=== PATIENT | female | born 1955 | race American Indian/Alaskan Native ===

== ENCOUNTER 2017-08-07 11:47 | Inpatient (IN) | payer OTHER ==
[2017-08-07] MEDS ORDERED: Sodium Chloride 0.9% 1,000 ML IV STA ×2 (12:33→16:23)
--- NOTE | 2017-08-07 13:20 | ED PDOC ---
Arrival/HPI - General Chief Complaint: Flu-like Symptoms Time Seen by Provider: 08/07/17 12:17 Historian: Patient - History of Present Illness Narrative History of Present Illness (Text): 08/07/17 13:16 A 62 year old female, whose past medical history includes diabetes, hypertension , hyperlipidemia, presents to the emergency department complaining of 4 day duration subjective fever, vomiting, sore throat, body aches, chills, nasal congestion and lightheadedness. The patient notes that she took Motrin for her symptoms without any relief. The patient states that she fell twice due to her lightheadedness. The patient denies LOC, headache, chest pain, shortness of breath, dyspnea on exertion, abdominal pain, nausea, diarrhea, back pain, neck pain, urinary/bowel changes, or any other complaint. PMD: Dr. Rita Nation Time/Duration: Other (4 days) Symptom Onset: Sudden Symptom Course: Unchanged Activities at Onset: Rest, Light Context: Home Past Medical History - Provider Review Nursing Documentation Reviewed: Yes - Infectious Disease Hx of Infectious Diseases: None - Tetanus Immunization Tetanus Immunization: Up to Date - Cardiac Hx Cardiac Arrhythmia: Yes (irregular heart beat) Hx Heart Murmur: Yes Hx Hypertension: Yes - Renal Hx Kidney Stones: Yes - Endocrine/Metabolic Hx Diabetes Mellitus Type 2: Yes - Psychiatric Hx Depression: No Hx Emotional Abuse: No Hx Physical Abuse: No Hx Substance Use: No - Suicidal Assessment Feels Threatened In Home Enviroment: No Family/Social History - Physician Review Nursing Documentation Reviewed: Yes Family/Social History: No Known Family HX Smoking Status: Never Smoked Hx Alcohol Use: No Hx Substance Use: No Hx Substance Use Treatment: No Allergies/Home Meds Allergies/Adverse Reactions: Allergies No Known Allergies Allergy (Verified 08/07/17 12:15) Home Medications: Home Meds Medication Instructions Recorded Confirmed Unobtainable 08/07/17 08/07/17 Review of Systems - Physician Review All systems were reviewed & negative as marked: Yes - Review of Systems Constitutional: Fevers ENT: Sore Throat Respiratory: absent: SOB, Cough Cardiovascular: absent: Chest Pain, MYRICK Gastrointestinal: Vomiting. absent: Abdominal Pain, Stool Changes, Constipation , Diarrhea, Nausea Genitourinary Female: absent: Urine Output Changes Musculoskeletal: Other (Body aches.). absent: Back Pain, Neck Pain Neurological: absent: Headache, Dizziness (Lightheaded) Physical Exam Vital Signs Reviewed: Yes Vital Signs Temp Pulse Resp BP Pulse Ox 08/07/17 14:45 85 18 134/94 H 97 08/07/17 12:11 98.5 F 116 H 18 105/70 97 Temperature: Afebrile Blood Pressure: Normal Pulse: Regular Respiratory Rate: Normal Appearance: Positive for: Non-Toxic, Comfortable, Ill-Appearing (Patient appears weak. ) Pain Distress: None Mental Status: Positive for: Alert and Oriented X 3 - Systems Exam Head: Present: Atraumatic, Normocephalic Pupils: Present: PERRL Extroacular Muscles: Present: EOMI Conjunctiva: Present: Normal Mouth: Present: Moist Mucous Membranes Nose (Internal): Present: Other (Nasal congestion.) Neck: Present: Normal Range of Motion Respiratory/Chest: Present: Clear to Auscultation, Good Air Exchange. No: Respiratory Distress, Accessory Muscle Use Cardiovascular: Present: Regular Rate and Rhythm, Normal S1, S2. No: Murmurs Abdomen: Present: Normal Bowel Sounds. No: Tenderness, Distention, Peritoneal Signs Back: Present: Normal Inspection Upper Extremity: Present: Normal Inspection. No: Cyanosis, Edema Lower Extremity: Present: Normal Inspection. No: Edema Neurological: Present: GCS=15, CN II-XII Intact, Speech Normal Skin: Present: Warm, Dry, Normal Color. No: Rashes Psychiatric: Present: Alert, Oriented x 3, Normal Insight, Normal Concentration Medical Decision Making ED Course and Treatment: 08/07/17 13:22 Impression: A 62 year old female presents to the emergency department complaining of 4 day duration fever, chills, sore throat, lightheadedness, body aches and vomiting. Plan: -- EKG -- Chest X-ray -- Labs -- IV Fluids -- Reassess and disposition Progress Notes: EKG: Ordered, reviewed, and independently interpreted the EKG. Rate : 96 BPM Rhythm : NSR Interpretation : RBBB. ST elevation in lead V2 1mm; ST depressions in the inferior lateral leads. 08/07/2017 15:15 Chest X-ray IMPRESSION: No active disease. Dictator: Oli Jones MD 08/07/17 16:57 Patient's EKG was concerning for cardiac disease. Cardiac enzymes were added and came out positive troponin at 3.99. EKG was sent to Dr. Anthony who is covering Cardiac Cath who recommends ASA, Plavix and Heparin bolus and drip. He will not take for an urgent cath at this time. Patient states that although she does not have chest pain now she does recall chest pain 4 days ago that resolved that day. Case discussed with Dr. Saldaña, Cardiology, who agrees with plan as per Dr. Anthony and he will consult. Case was discussed with Dr. Leblanc, hospitalist, who admits for Dr. Nation. She agrees to Telemetry services and she will evaluate patient. Repeat EK:56 EKG: Ordered, reviewed, and independently interpreted the EKG. Rate : 101 BPM Rhythm : Sinus Tachy Interpretation : RBBB. ST elevation in lead V2 1mm; ST depressions in the inferior lateral leads. No change from earlier EKG. - Critical Care Critical Care Minutes: 60 minutes - Lab Interpretations Lab Results: 08/07/17 13:48 08/07/17 13:48 Lab Results 08/07/17 13:48: Lactate Dehydrogenase 708 H, Total Creatine Kinase 201, Troponin I 3.99 H* 08/07/17 13:48: Sodium 136, Potassium 4.4, Chloride 93 L, Carbon Dioxide 27, Anion Gap 20, BUN 42 H, Creatinine 1.5 H, Est GFR ( Amer) 43, Est GFR ( Non-Af Amer) 35, Random Glucose 386 H*, Calcium 10.6 H, Magnesium 1.9 08/07/17 13:48: WBC 18.4 H, RBC 5.93, Hgb 16.9 H, Hct 49.2 H, MCV 83.0, MCH 28.5 , MCHC 34.3, RDW 12.7, Plt Count 407, MPV 9.9, Gran % 78.0 H, Lymph % (Auto) 15.8 L, [place] % (Auto) 6.1 H, Eos % (Auto) 0.0 L, Baso % (Auto) 0.1, Gran # 14.36 H, Lymph # (Auto) 2.9, [place] # (Auto) 1.1 H, Eos # (Auto) 0.0, Baso # (Auto ) 0.02 08/07/17 12:30: Influenza Typ A,B (EIA) Negative for flu a/b I have reviewed the lab results: Yes - RAD Interpretation Radiology Orders: 08/07/17 12:34 CHEST PORTABLE [RAD] Stat - EKG Interpretation Interpreted by ED Physician: Yes Type: 12 lead EKG - Medication Orders Current Medication Orders: Acetaminophen (Tylenol 325mg Tab) 650 mg PO Q6H PRN PRN Reason: Fever >100.4 F Aspirin (Aspirin Chewable) 81 mg PO DAILY [facility] Atorvastatin Calcium (Lipitor) 40 mg PO DIN [facility] Benzocaine/Menthol (Cepacol Sore Throat) 1 hardeep MT Q2H PRN PRN Reason: Sore Throat Clopidogrel Bisulfate (Plavix) 75 mg PO DAILY [facility] Sodium Chloride (Sodium Chloride 0.9%) 1,000 mls @ 999 mls/hr IV .Q1H1M STA Stop: 08/07/17 17:23 Sodium Chloride (Sodium Chloride 0.9%) 1,000 mls @ 100 mls/hr IV .Q10H [facility] Vancomycin HCl (Vancomycin 1gm) 1 gm in 250 mls @ 167 mls/hr IVPB DAILY [facility] PRN Reason: Protocol Piperacillin Sod/Tazobactam Sod (Zosyn 3.375 In Ns 100ml) 100 mls @ 200 mls/hr IVPB Q6 [facility] PRN Reason: Protocol Stop: 08/08/17 00:29 Ibuprofen (Motrin Tab) 600 mg PO Q6H PRN PRN Reason: Fever >100.4 F Insulin Human Regular (Humulin R Med) 0 units SC ACHS [facility] PRN Reason: Protocol Metoprolol Tartrate (Lopressor) 25 mg PO 0800,1800 [facility] Ondansetron HCl (Zofran Inj) 4 mg IVP Q6H PRN PRN Reason: Nausea/Vomiting Oseltamivir Phosphate (Tamiflu Cap) 75 mg PO Q12 [facility] PRN Reason: Protocol Discontinued Medications Aspirin (Aspirin) 325 mg PO STAT STA Stop: 08/07/17 15:15 Atorvastatin Calcium (Lipitor) 40 mg PO STAT STA Stop: 08/07/17 16:04 Clopidogrel Bisulfate (Plavix) 75 mg PO STAT STA Stop: 08/07/17 16:04 Heparin Sodium (Porcine) (Heparin) 5,000 units IV ONCE ONE PRN Reason: Protocol Stop: 08/07/17 16:04 Sodium Chloride (Sodium Chloride 0.9%) 1,000 mls @ 999 mls/hr IV .Q1H1M STA Stop: 08/07/17 13:33 Last Admin: 08/07/17 13:38 Dose: 999 mls/hr eMAR Start Stop Document 08/07/17 13:38 GMD (Rec: 08/07/17 13:38 GMD [id number]) Intravenous Solution Start Date 08/07/17 Start Time 13:38 End Date 08/07/17 End time 14:39 Total Infusion Time 61 Vancomycin HCl (Vancomycin 1gm) 1 gm in 250 mls @ 167 mls/hr IVPB STAT STA PRN Reason: Protocol Stop: 08/07/17 16:34 Piperacillin Sod/Tazobactam Sod (Zosyn 4.5 Gm In Ns 100ml) 4.5 gm in 100 mls @ 200 mls/hr IVPB STAT STA PRN Reason: Protocol Stop: 08/07/17 15:34 Ketorolac Tromethamine (Toradol) 30 mg IVP STAT STA Stop: 08/07/17 14:15 Last Admin: 08/07/17 14:20 Dose: 30 mg MAR Pain Assessment Document 08/07/17 14:20 GMD (Rec: 08/07/17 14:20 GMD [id number]) Pain Reassessment Is this a pain reassessment? No Sleep Is patient sleeping during reassessment? No Presence of Pain Presence of Pain Yes IVP Administration Document 08/07/17 14:20 GMD (Rec: 08/07/17 14:20 GMD [id number]) Charges for Administration # of IVP Administrations 1 Metoprolol Tartrate (Lopressor) 25 mg PO STAT STA Stop: 08/07/17 16:04 Oseltamivir Phosphate (Tamiflu Cap) 75 mg PO STAT STA PRN Reason: Protocol Stop: 08/07/17 15:07 - Scribe Statement The provider has reviewed the documentation as recorded by the Juan Waterman Provider Scribe Attestation: All medical record entries made by the Scribe were at my direction and personally dictated by me. I have reviewed the chart and agree that the record accurately reflects my personal performance of the history, physical exam, medical decision making, and the department course for this patient. I have also personally directed, reviewed, and agree with the discharge instructions and disposition. Disposition/Present on Arrival - Present on Arrival Any Indicators Present on Arrival: No History of DVT/PE: No History of Uncontrolled Diabetes: No Urinary Catheter: No History of Decub. Ulcer: No History Surgical Site Infection Following: None - Disposition Have Diagnosis and Disposition been Completed?: Yes Diagnosis: NSTEMI (non-ST elevated myocardial infarction), Viral syndrome Disposition: HOSPITALIZED Disposition Time: 15:45 Patient Plan: Admission Condition: FAIR
[2017-08-07 13:51] LABS: BASO # 0.02 K/mm3 (0.0-2.0); BASO % 0.1 % (0.0-3.0); GRAN # 14.36 (1.4-6.5); HEMOGLOBIN 16.9 g/dL (12.0-16.0); LYMPH # 2.9 (1.2-3.4); LYMPH % 15.8 % (22.0-35.0); MEAN CORPUSCULAR HEMOGLOBIN 28.5 pg (25.0-35.0); MEAN CORPUSCULAR HGB CONC 34.3 g/dl (31.0-37.0); MEAN PLATELET VOLUME 9.9 fl (7.0-11.0); MONO # 1.1 (0.1-0.6); MONO % 6.1 % (1.0-6.0); RBC 5.93 10^6/uL (3.5-6.1); RED CELL DISTRIBUTION WIDTH 12.7 % (11.5-14.5); WHITE BLOOD COUNT 18.4 10^3/ul (4.5-11.0)
[2017-08-07 14:27] LABS: CALCIUM 10.6 mg/dL (8.4-10.5); MAGNESIUM 1.9 mg/dL (1.7-2.2)
[2017-08-07] MEDS ORDERED: Piperacill/Tazo 4.5gm in NS 4.5 GM/100 ML BAG IVPB STA (15:05)
[2017-08-07] MEDS ORDERED: Vancomycin 1gm in NS 250ml 1 GM/250 ML BAG IVPB STA (15:05)
[2017-08-07 15:11] LABS: TROPONIN I 3.99 ng/mL
--- NOTE | 2017-08-07 15:16 | RAD ---
HISTORY: Cough. Pneumonia suspected COMPARISON: No prior. FINDINGS: LUNGS: No active pulmonary disease. PLEURA: No significant pleural effusion identified, no pneumothorax apparent. CARDIOVASCULAR: No radiographic findings to suggest acute or significant cardiovascular disease. OSSEOUS STRUCTURES: No significant abnormalities. VISUALIZED UPPER ABDOMEN: Normal. OTHER FINDINGS: None. IMPRESSION: No active disease. Concordant results with the preliminary interpretation rendered by the emergency department physician procedure.
[2017-08-07] MEDS ORDERED: Benzocaine/Menthol (Cepacol) Lozenge MT PRN (16:23)
[2017-08-07] MEDS ORDERED: Sodium Chloride 0.9% 1,000 ML IV SCH (16:30)
--- NOTE | 2017-08-07 16:55 | CP.PCM.HP ---
History of Present Illness - History of Present Illness History of Present Illness: Lara Griffin, PGY1, H&P for Dr Leblanc: CC: body aches, subjective fevers, congestion, chest pressure for past 4 days 62 year old female with hx of HTN, HLD, DM, presents to ED for body aches, congestion, subjective fevers for past 4 days. Pt states that she felt these symptoms on night. Motrin and lozenges helped her a little. She also felt midsternal chest pressure at the time, feels like an "elephant sitting on her chest", rates it 7/10, intermittent, lasting 10-15 minutes at a time, started while she was in bed, unrelated to exertional activities (unknown as pt has been in bed for past few days), radiating to right jaw, has associated sob, diaphoresis, mild abdominal pain. Reports bilious, nonbloody emesis for past few days, decreased appetite and PO intake. Due to poor intake, pt also reports that she felt dizzy yesterday and had 2 falls at home (landed on her hands, no injury to hip/pelvis/head), prompting pt to come to ED. Pt vaguely remembers that she had a stress test, possibly [address] Han, which was normal , reports no previous cardiac cath. Reports no prior chest pain, prior to current episode. In ED, pt afebrile, tachycardic, other vitals stable. leukocytosis 18.8, hemocontrated Hgb 16.9, hct 49.2, Don BUN/Cr 42/1.5 (unknown baseline). flu negative. Given ASA 325, plavix 75, 1L NS bolus, Vanco and zosyn x1, heparin loading dose, started heparin drip. Tamiflu given. Dr Saldaña on board. Currently, pt denies fever, chills, nausea, vomiting, headache, cp, sob, cough, abdominal pain, wheezing, urinary symptoms, leg swelling. Reports body aches and sore throat are improving. 12 point ROS obtained and neg, except as noted per hPI. PMH: HTN, HLD, DM PSH: kidney stone removal All: NKA FH: polycystic kidney disease in mother, brother HTN in family SH: lives with in house. Works at [employer]. Denies etoh/ tobacco/recreational drug use. PMD: Nation Cardio: [facility] Home Meds: ASA 81, lisinopril 2.5 mg daily, Metformin 500 mg BID, HCTZ 12.5 mg daily, Atorvastatin 20 mg daily Present on Admission - Present on Admission Any Indicators Present on Admission: No History of DVT/PE: No History of Uncontrolled Diabetes: No Urinary Catheter: No Decubitus Ulcer Present: No Review of Systems - Review of Systems All systems: reviewed and no additional remarkable complaints except Review of Systems: as per HPI Past Patient History - Infectious Disease Hx of Infectious Diseases: None - Tetanus Immunizations Tetanus Immunization: Up to Date - Past Social History Smoking Status: Never Smoked - CARDIAC Hx Cardia Arrhythmia: Yes (irregular heart beat) Hx Heart Murmur: Yes Hx Hypertension: Yes - RENAL Hx Kidney Stones: Yes - ENDOCRINE/METABOLIC Hx Diabetes Mellitus Type 2: Yes - PSYCHIATRIC Hx Depression: No Hx Emotional Abuse: No Hx Physical Abuse: No Hx Substance Use: No - SURGICAL HISTORY Hx Surgeries: No Meds Allergies/Adverse Reactions: Allergies Allergy/AdvReac Type Severity Reaction Status Date / Time No Known Allergies Allergy Verified 08/07/17 12:15 Physical Exam - Constitutional Appears: Non-toxic - Head Exam Head Exam: ATRAUMATIC, NORMOCEPHALIC - Eye Exam Eye Exam: EOMI, PERRL. absent: Conjunctival injection, Nystagmus, Scleral icterus Pupil Exam: NORMAL ACCOMODATION, PERRL. absent: Fixed, Irregular - ENT Exam ENT Exam: Mucous Membranes Dry - Neck Exam Neck exam: Positive for: Full Rom - Respiratory Exam Respiratory Exam: Clear to Auscultation Bilateral, NORMAL BREATHING PATTERN. absent: Accessory Muscle Use, Chest Wall Tenderness, Rales, Rhonchi, Wheezes - Cardiovascular Exam Cardiovascular Exam: RRR, +S1, +S2. absent: Systolic Murmur - GI/Abdominal Exam GI & Abdominal Exam: Normal Bowel Sounds, Soft. absent: Distended, Firm, Guarding, Rebound, Rigid, Tenderness - Extremities Exam Extremities exam: Positive for: normal inspection. Negative for: calf tenderness, pedal edema - Back Exam Back exam: NORMAL INSPECTION. absent: CVA tenderness (L), CVA tenderness (R) - Neurological Exam Neurological exam: Alert, Oriented x3 - Psychiatric Exam Psychiatric exam: Normal Affect, Normal Mood - Skin Skin Exam: Dry, Normal Color, Warm Results - Vital Signs Recent Vital Signs: Last Vital Signs Temp 98.5 F 08/07/17 12:11 Pulse 85 08/07/17 14:45 Resp 18 08/07/17 14:45 BP 134/94 H 08/07/17 14:45 Pulse Ox 97 08/07/17 14:45 - Labs Result Diagrams: 08/07/17 13:48 08/07/17 16:45 Assessment & Plan - Assessment and Plan (Free Text) Assessment: 62 year old female with hx of HTN, HLD, DM, presents for body aches, subjective fevers, congestion, chest pressure, found to have elevated troponin: Chest pressure, r/o ACS: - Initial trop 3.99. EKG shows HR [address] depressions in inferior lateral leads. - F/u serial trops. EKG in AM. - Received ASA 325, plavix 75 mg, lopressor 25 mg, lipitor 40 mg in ED, heparin 5000 units IV in ED. - Started on ASA 81, plavix 75, lopressor 25 bid, [id number]. - Heparin drip - Tele - Dr Saldaña on board. Appreciate recs. Body aches, congestion, subjective fevers: 2/2 viral like illness, flu vs PNA vs UTI (less likely) vs gastroenteritis - Influenza rapid swab neg. Sent for serum testing - Given Tamiflu 1 dose in ED. Started tamiflu bid x 5 days. - Procal, blood culture, UA, urine culture - zofran prn, tylenol and motrin prn - Vanco and zosyn x 1 dose in ED. Started it empirically. - Leukocytosis 18.4, no bandemia. - Afebrile in ED - ID consulted. F/u recs. - Cont to monitor. Acute on chronic kidney disease: likely prerenal (dehydration) - BUN/Cr 42/1.5; ratio>20 - GFR 35: stage 3 CKD - Sent Uosm, Urine lytes - Given 1L NS bolus in ED. - IL NS bolus. NS @ 100/hr Hx of HTN: - Hold home anti-HTN [id number] in setting of DON - Hold HCTZ in setting of dehydration PPX: Protonix, Heparin drip Discussed with Dr Leblanc. - Date & Time Date: 08/07/17 Time: 16:55
[2017-08-07] MEDS ORDERED: Heparin25000 units/250ml 1/2NS 25,000 UNITS/250 ML BAG IV SCH (17:00)
[2017-08-07 17:10] LABS: HDL CHOLESTEROL 34 mg/dL (29-60)
[2017-08-07 17:12] LABS: INR 1.14 (0.93-1.08)
[2017-08-07 17:20] LABS: LDL CHOLESTEROL 115 mg/dL (0-129)
[2017-08-07 17:29] LABS: ALB/GLOB RATIO 1.2 (1.1-1.8); ALT/SGPT 20 U/L (7-56); AST/SGOT 41 U/L (14-36); BLOOD UREA NITROGEN 39 mg/dL (7-21); CALCIUM 9.8 mg/dL (8.4-10.5); GFR AFRICAN-AMERICAN > 60; GFR NON-AFRICAN AMERICAN 51
[2017-08-07 18:50] VITALS: BMI 25.8
--- NOTE | 2017-08-07 20:31 | CP.PCM.CON ---
History of Present Illness - History of Present Illness History of Present Illness: Infectious Disease Consultation: August 07, 2017 62 yo female with extensive medical history that includes HTN, HLD, and DM presents with with 4 day history of body aches, subjective fevers, congestion, and chest pressure. Found to have elevated troponins. The patient was found to be also tachycardic and with leukocytosis of 18.8. Influenza screen negative. Reports sore throat and body aches as well. Chest X-ray does not show active disease. PMHx: HTN, HLD, DM PSHx: kidney Stone removal Allergies: NKDA Social Hx: No tobacco, EtOH, or illicit drug use Work at [employer] Lives at home with Active Medications Acetaminophen (Tylenol 325mg Tab) 650 mg PO Q6H PRN PRN Reason: Fever >100.4 F Aspirin (Aspirin Chewable) 81 mg PO DAILY [facility] Atorvastatin Calcium (Lipitor) 40 mg PO DIN [facility] Benzocaine/Menthol (Cepacol Sore Throat) 1 hardeep MT Q2H PRN PRN Reason: Sore Throat Clopidogrel Bisulfate (Plavix) 75 mg PO DAILY [facility] Sodium Chloride (Sodium Chloride 0.9%) 1,000 mls @ 100 mls/hr IV .Q10H [facility] Vancomycin HCl (Vancomycin 1gm) 1 gm in 250 mls @ 167 mls/hr IVPB DAILY [facility] PRN Reason: Protocol Piperacillin Sod/Tazobactam Sod (Zosyn 3.375 In Ns 100ml) 100 mls @ 200 mls/hr IVPB Q6 [facility] PRN Reason: Protocol Stop: 08/08/17 00:29 Heparin Sodium/Sodium Chloride (Heparin 86511 Units/250ml 1/2 Normal Saline) 25 ,000 units in 250 mls @ 8.709 mls/hr IV .Q24H NANCY; 12 UNITS/KG/HR PRN Reason: Protocol Last Admin: 08/07/17 18:14 Dose: 12 units/kg/hr, 8.709 mls/hr Ibuprofen (Motrin Tab) 600 mg PO Q6H PRN PRN Reason: Fever >100.4 F Insulin Human Regular (Humulin R Med) 0 units SC ACHS [facility] PRN Reason: Protocol Metoprolol Tartrate (Lopressor) 25 mg PO 0800,1800 [facility] Ondansetron HCl (Zofran Inj) 4 mg IVP Q6H PRN PRN Reason: Nausea/Vomiting Oseltamivir Phosphate (Tamiflu Cap) 75 mg PO Q12 [facility] PRN Reason: Protocol Pantoprazole Sodium (Protonix Inj) 40 mg IVP Q12 [facility] Family Hx: polycystic kidney disease in mother and brother ROS: body aches, subjective fevers, chills, congestion, chest pressure. No abdominal pain, melena, hematuria, hematemesis, hematochezia, depression, anxiety, diarrhea, vision loss, hearing loss, loss of consciousnes. Past Patient History - Infectious Disease Hx of Infectious Diseases: None - Tetanus Immunizations Tetanus Immunization: Up to Date - Past Social History Smoking Status: Never Smoked - CARDIAC Hx Cardia Arrhythmia: Yes (irregular heart beat) Hx Heart Murmur: Yes Hx Hypertension: Yes - RENAL Hx Kidney Stones: Yes - ENDOCRINE/METABOLIC Hx Diabetes Mellitus Type 2: Yes - MUSCULOSKELETAL/RHEUMATOLOGICAL Hx Falls: No - PSYCHIATRIC Hx Depression: No Hx Emotional Abuse: No Hx Physical Abuse: No Hx Substance Use: No - SURGICAL HISTORY Hx Surgeries: No Meds Allergies/Adverse Reactions: Allergies Allergy/AdvReac Type Severity Reaction Status Date / Time No Known Allergies Allergy Verified 08/07/17 12:15 - Medications Medications: Current Medications Acetaminophen (Tylenol 325mg Tab) 650 mg PO Q6H PRN PRN Reason: Fever >100.4 F Aspirin (Aspirin Chewable) 81 mg PO DAILY [facility] Atorvastatin Calcium (Lipitor) 40 mg PO DIN [facility] Benzocaine/Menthol (Cepacol Sore Throat) 1 hardeep MT Q2H PRN PRN Reason: Sore Throat Clopidogrel Bisulfate (Plavix) 75 mg PO DAILY [facility] Sodium Chloride (Sodium Chloride 0.9%) 1,000 mls @ 100 mls/hr IV .Q10H [facility] Vancomycin HCl (Vancomycin 1gm) 1 gm in 250 mls @ 167 mls/hr IVPB DAILY [facility] PRN Reason: Protocol Piperacillin Sod/Tazobactam Sod (Zosyn 3.375 In Ns 100ml) 100 mls @ 200 mls/hr IVPB Q6 [facility] PRN Reason: Protocol Stop: 08/08/17 00:29 Heparin Sodium/Sodium Chloride (Heparin 12532 Units/250ml 1/2 Normal Saline) 25 ,000 units in 250 mls @ 8.709 mls/hr IV .Q24H NANCY; 12 UNITS/KG/HR PRN Reason: Protocol Last Admin: 08/07/17 18:14 Dose: 12 units/kg/hr, 8.709 mls/hr Ibuprofen (Motrin Tab) 600 mg PO Q6H PRN PRN Reason: Fever >100.4 F Insulin Human Regular (Humulin R Med) 0 units SC ACHS [facility] PRN Reason: Protocol Metoprolol Tartrate (Lopressor) 25 mg PO 0800,1800 [facility] Ondansetron HCl (Zofran Inj) 4 mg IVP Q6H PRN PRN Reason: Nausea/Vomiting Oseltamivir Phosphate (Tamiflu Cap) 75 mg PO Q12 [facility] PRN Reason: Protocol Pantoprazole Sodium (Protonix Inj) 40 mg IVP Q12 [facility] Physical Exam - Constitutional Appears: Non-toxic, No Acute Distress - Head Exam Head Exam: ATRAUMATIC, NORMOCEPHALIC - Eye Exam Eye Exam: EOMI, PERRL Pupil Exam: NORMAL ACCOMODATION, PERRL - ENT Exam ENT Exam: Mucous Membranes Moist, Normal External Ear Exam, TM's Normal Bilaterally - Neck Exam Neck exam: Positive for: Full Rom, Normal Inspection - Respiratory Exam Respiratory Exam: Clear to Auscultation Bilateral, NORMAL BREATHING PATTERN. absent: Rales, Rhonchi, Wheezes - Cardiovascular Exam Cardiovascular Exam: REGULAR RHYTHM, RRR, +S1, +S2 - GI/Abdominal Exam GI & Abdominal Exam: Normal Bowel Sounds, Soft. absent: Distended, Tenderness - Extremities Exam Extremities exam: Positive for: full ROM, normal inspection - Neurological Exam Neurological exam: Alert, CN II-XII Intact, Oriented x3 - Psychiatric Exam Psychiatric exam: Normal Affect, Normal Mood - Skin Skin Exam: Intact, Normal Color Results - Vital Signs Recent Vital Signs: Last Vital Signs Temp 98.5 F 08/07/17 12:11 Pulse 85 08/07/17 14:45 Resp 18 08/07/17 18:46 BP 134/94 H 08/07/17 14:45 Pulse Ox 97 08/07/17 14:45 - Labs Result Diagrams: 08/07/17 13:48 08/07/17 16:45 Labs: Laboratory Results - last 24 hr 08/07/17 08/07/17 16:45 16:45 Sodium 138 Potassium 4.0 Chloride 99 Carbon Dioxide 25 Anion Gap 17 BUN 39 H Creatinine 1.1 Est GFR ( Amer) > 60 Est GFR (Non-Af Amer) 51 Random Glucose 300 H Calcium 9.8 Total Bilirubin 1.3 AST 41 H ALT 20 Alkaline Phosphatase 65 Total Creatine Kinase 183 Total Protein 7.5 Albumin 4.0 Globulin 3.5 Albumin/Globulin Ratio 1.2 Triglycerides 224 H Cholesterol 173 LDL Cholesterol Direct 115 HDL Cholesterol 34 Assessment & Plan - Assessment and Plan (Free Text) Assessment: 62 yo female with presentation for body aches, subjective fevers, congestion, and chest pressure found to have elevated troponin and increased leukocytosis. No bandemia noted. Negative Chest X-ray. [place] cultures sent. Influenza negative. Trend WBC. On Vancomycin and Zosyn in ER. Supportive care. Noted procalcitonin sent but patient not showing signs of sepsis. No strong evidence of pneumonia. Spoke with Dr. Leblanc. Thank you for allowing me to participate in the care of the patient, we will follow with you.
[2017-08-07] MEDS: Insulin Reg-MEDIUM-Coverage SC SCH (21:36)
[2017-08-07] MEDS: Piperacillin/Tazobact 3.375 gm 100 ML IVPB SCH (21:53)
[2017-08-08] MEDS: Piperacillin/Tazobact 3.375 gm 100 ML IVPB SCH (02:08)
[2017-08-08 07:18] LABS: BASO # 0.02 K/mm3 (0.0-2.0); BASO % 0.2 % (0.0-3.0); EOS % 0.1 % (1.5-5.0); GRAN # 8.33 (1.4-6.5); GRAN % 63.5 % (50.0-68.0); LYMPH # 3.9 (1.2-3.4); LYMPH % 29.6 % (22.0-35.0); MEAN CELL VOLUME 83.1 fl (80.0-105.0); MEAN CORPUSCULAR HEMOGLOBIN 27.5 pg (25.0-35.0); MEAN CORPUSCULAR HGB CONC 33.2 g/dl (31.0-37.0); MEAN PLATELET VOLUME 9.6 fl (7.0-11.0); MONO # 0.9 (0.1-0.6); MONO % 6.6 % (1.0-6.0); RBC 4.61 10^6/uL (3.5-6.1); RED CELL DISTRIBUTION WIDTH 12.8 % (11.5-14.5); WHITE BLOOD COUNT 13.1 10^3/ul (4.5-11.0)
[2017-08-08 07:42] LABS: ALB/GLOB RATIO 1.1 (1.1-1.8); ALBUMIN 3.2 g/dL (3.0-4.8); ALT/SGPT 29 U/L (7-56); AST/SGOT 29 U/L (14-36); BLOOD UREA NITROGEN 27 mg/dL (7-21); GFR AFRICAN-AMERICAN > 60; GFR NON-AFRICAN AMERICAN > 60
[2017-08-08 07:49] LABS: HEMOGLOBIN 12.7 g/dL (12.0-16.0)
[2017-08-08] MEDS: Insulin Reg-MEDIUM-Coverage SC SCH ×3 (08:48→22:39)
[2017-08-08] MEDS ORDERED: Insulin Regular 1 UNITS/0.01 ML ML ONE (08:55)
[2017-08-08] MEDS ORDERED: Potassium Chloride 20 mEq ER Tab PO STA (09:19)
--- NOTE | 2017-08-08 09:55 | CARD ---
APPROVED REPORT EKG Measurement Heart [id number] <Conclusion> Normal sinus rhythm Right bundle branch block Possible LAHB Septal infarct, age undetermined ST - T wave abnormality, consider inferolateral ischemia No change except the rate is slower
[2017-08-08] MEDS: Pantoprazole 40 mg EC Tab PO SCH (10:02)
[2017-08-08] MEDS: Vancomycin 1gm in NS 250ml 1 GM/250 ML BAG IVPB SCH (10:03)
[2017-08-08 10:09] LABS: MAGNESIUM 1.9 mg/dL (1.7-2.2)
[2017-08-08 10:43] LABS: TROPONIN I 3.31 ng/mL
[2017-08-08] MEDS ORDERED: Lidocaine 2% Inj (20ml) ONE (11:34)
[2017-08-08] MEDS ORDERED: Midazolam 2 MG/2 ML VIAL ONE (11:34)
[2017-08-08] MEDS ORDERED: HEPARIN SODIUM/NS 2,000 ML IV ONE (11:35)
[2017-08-08] MEDS ORDERED: Iodixanol 320 MG/ML 200 ML BOTTLE IV ONE (11:35)
[2017-08-08] MEDS ORDERED: Eptifibatide 20 mg/10mL Inj IVP ONE (12:11)
[2017-08-08] MEDS ORDERED: Sodium Chloride 0.9% 1,000 ML IV SCH (13:15)
--- NOTE | 2017-08-08 14:22 | CARD ---
APPROVED REPORT Procedure(s) performed: PTCA with Stenting of Mid Cx with BE HISTORY The patient is a 62 year-old female with a history of : diabetes mellitus with insulin treatment , previous diagnostic cath, hypertension , dyslipidemia , Pt . admitted with NSTEMI, Cath done By Dr. Saldaña, (see full cath report from Dr. Saldaña).. INDICATION The indication(s) include : non-STEMI . CASE TECHNIQUE The patient was brought urgently to the Cardiac Catheterization Laboratory in a fasting state and was prepped and draped in a sterile manner. The right femoral groin was infiltrated with 2% Lidocaine subcutaneous anesthesia. Closure device was deployed with a 6 Fr Perclose ProGlide without any complications. Vessel Analysis The patient's coronary anatomy is Co-dominant. The circumflex artery is a large size vessel with diffuse calcification noted throughout this vessel and with significant stenosis. There is a 95% stenosis in the mid segment. See full cath report from [facility] Anticoagulation was achieved with Heparin. Percutaneous coronary intervention was performed on the mid circumflex artery segment. The lesion stenosis prior to intervention was 95% with EARNESTINE 2 flow. A 6 Fr XB 3.5 Guide Catheter was used to engage the ostium. A Luge 182 Interventional Guidewire was used to cross the lesion. BALLOON DILATION A Balloon catheter 2.0 x 15 mm Mini Trek RX was inserted and inflated up to 12.00atm for 20seconds. STENT DEPLOYMENT A drug-eluting stent 2.75 x 22 mm Resolute BE was inserted and inflated up to 12.00atm for 20seconds. POST STENT DEPLOYMENT BALLOON DILATION A Balloon catheter 3.0 x 15 mm Trek RX NC was inserted and inflated up to 14.00atm for 12seconds. Final angiography reveals 0 % stenosis with EARNESTINE 3 flow. Conclusion Critical diz. in Mid Cx 95%. Moderate diz in RCA/LAD Successful PTCA of Mid Cx with BE Recommendations Cardiac Rehabilitation ReferralDaily ASA with Plavix for at least one year Aggressive Medical Therapy Weight Loss Reduction Program cc; DR. Saldaña / Emely Tsai
--- NOTE | 2017-08-08 15:17 | CARD ---
APPROVED REPORT EKG Measurement Heart [id number] [place] 168P34 [id number] <Conclusion> Normal sinus rhythm Right bundle branch block LAHB Septal infarct, age undetermined STTW changes c/w ischemia
--- NOTE | 2017-08-08 16:02 | CARD ---
APPROVED REPORT EKG Measurement Heart [id number] [place] 170P11 [id number] <Conclusion> Poor data quality, interpretation may be adversely affected Sinus tachycardia Right bundle branch block Septal infarct, age undetermined T wave abnormality, consider infero-lateral ischemia Abnormal ECG
--- NOTE | 2017-08-08 16:05 | CARD ---
APPROVED REPORT EKG Measurement Heart [id number] [place] 178P30 [id number] <Conclusion> Poor data quality, interpretation may be adversely affected Normal sinus rhythm Right bundle branch block Septal infarct, age undetermined Consider inferior ischemia Abnormal ECG
[2017-08-08 16:12] LABS: BASO # 0.02 K/mm3 (0.0-2.0); BASO % 0.2 % (0.0-3.0); EOS % 0.2 % (1.5-5.0); GRAN # 6.26 (1.4-6.5); GRAN % 59.9 % (50.0-68.0); LYMPH # 3.5 (1.2-3.4); MEAN CELL VOLUME 85.6 fl (80.0-105.0); MEAN CORPUSCULAR HEMOGLOBIN 27.8 pg (25.0-35.0); MEAN CORPUSCULAR HGB CONC 32.5 g/dl (31.0-37.0); MEAN PLATELET VOLUME 9.8 fl (7.0-11.0); MONO # 0.7 (0.1-0.6); MONO % 6.7 % (1.0-6.0); RBC 4.31 10^6/uL (3.5-6.1); RED CELL DISTRIBUTION WIDTH 12.9 % (11.5-14.5); WHITE BLOOD COUNT 10.5 10^3/ul (4.5-11.0)
[2017-08-08 16:28] LABS: BLOOD UREA NITROGEN 20 mg/dL (7-21); CALCIUM 8.7 mg/dL (8.4-10.5); GFR AFRICAN-AMERICAN > 60; GFR NON-AFRICAN AMERICAN > 60
[2017-08-08 16:55] LABS: TROPONIN I 2.84 ng/mL
--- NOTE | 2017-08-08 21:25 | CARDCATH ---
PROCEDURE DATE: HISTORY OF PRESENT ILLNESS: The patient is a 62-year-old female who has a history of hypertension, diabetes mellitus, presents because of flu-like symptoms, was found to have inferolateral ischemic EKG changes and elevated troponin. The patient was brought to the cardiac clinical laboratory science professor for cardiac catheterization with intervention. The procedure and its risks were fully explained to the patient who understood and agreed for the procedure. DESCRIPTION OF PROCEDURE: After local infiltration of 1% lidocaine, a 6-Congolese sheath was placed in right femoral artery. Left to right coronary angiography was performed with 6-Congolese JL4 and 5-Congolese JR Helio diagnostic catheter. Left ventriculogram was performed with 6-Congolese pigtail catheter. The patient tolerated the procedure well without any complications. ANGIOGRAPHIC FINDINGS: Selective injection of the left coronary artery revealed left main to be a normal vessel, left main bifurcated into medium-sized LAD and medium-sized circumflex artery. LAD has a diffuse chrl-pz-vaicwpfn disease in its proximal and middle segments. Circumflex artery had a critical complex lesion in its middle portion of 95% in severity, which is considered as the culprit lesion for the recent ybl-PD-pwazlrifh myocardial infarction. Selective injection of right coronary artery revealed a 50% ostial spasm. The rest of the right coronary artery was angiographically unremarkable. Left ventriculogram performed in HENDRIX projection revealed normal wall motion, ejection fraction estimated to be about 65%. CONCLUSION: Critical mid circumflex artery, which is considered as the culprit lesion for the acute dis-WM-bvmqdyyef myocardial infarction, 50% ostial right coronary artery stenosis, which is most likely a catheter-induced spasm. PLAN: The case was discussed with Dr. Palomino, nematology teacher, who will proceed with intervention. The need for intervention was discussed with the patient who agreed for the procedure. Ezequiel Saldaña MD
--- NOTE | 2017-08-08 21:33 | CP.PCM.PN ---
Subjective - Date & Time of Evaluation Date of Evaluation: 08/08/17 Time of Evaluation: 19:00 - Subjective Subjective: Infectious Disease Follow Up: August 08, 2017 62 yo female with extensive medical history that includes HTN, HLD, and DM presents with with 4 day history of body aches, subjective fevers, congestion, and chest pressure. Found to have elevated troponins. The patient was found to be also tachycardic and with leukocytosis of 18.8. Influenza screen negative. Reports sore throat and body aches as well. Chest X-ray does not show active disease. Taken to cardiac cath today. Leukocytosis resolved 10.5. Troponin remains elevated. Objective - Vital Signs/Intake and Output Vital Signs (last 24 hours): Temp Pulse Resp BP Pulse Ox 98.6 F 72 16 90/55 L 98 08/08/17 16:00 08/08/17 19:00 08/08/17 19:00 08/08/17 19:00 08/08/17 09:32 Intake and Output: 08/08/17 08/09/17 18:59 06:59 Intake Total 120 Output Total 0 Balance 120 - Medications Medications: Current Medications Acetaminophen (Tylenol 325mg Tab) 650 mg PO Q6H PRN PRN Reason: Fever >100.4 F Aspirin (Aspirin Chewable) 81 mg PO DAILY [facility] Last Admin: 08/08/17 09:42 Dose: 81 mg Atorvastatin Calcium (Lipitor) 40 mg PO DIN [facility] Last Admin: 08/08/17 17:42 Dose: 40 mg Benzocaine/Menthol (Cepacol Sore Throat) 1 hardeep MT Q2H PRN PRN Reason: Sore Throat Clopidogrel Bisulfate (Plavix) 75 mg PO DAILY [facility] Last Admin: 08/08/17 09:41 Dose: 75 mg Sodium Chloride (Sodium Chloride 0.9%) 1,000 mls @ 100 mls/hr IV .Q10H [facility] Last Admin: 08/08/17 06:25 Dose: 100 mls/hr Vancomycin HCl (Vancomycin 1gm) 1 gm in 250 mls @ 167 mls/hr IVPB DAILY [facility] PRN Reason: Protocol Last Admin: 08/08/17 10:03 Dose: 167 mls/hr Ibuprofen (Motrin Tab) 600 mg PO Q6H PRN PRN Reason: Fever >100.4 F Insulin Human Regular (Humulin R Med) 0 units SC ACHS [facility] PRN Reason: Protocol Last Admin: 08/08/17 16:30 Dose: Not Given Metoprolol Tartrate (Lopressor) 25 mg PO 0800,1800 [facility] Last Admin: 08/08/17 17:37 Dose: Not Given Ondansetron HCl (Zofran Inj) 4 mg IVP Q6H PRN PRN Reason: Nausea/Vomiting Oseltamivir Phosphate (Tamiflu Cap) 75 mg PO Q12 [facility] PRN Reason: Protocol Last Admin: 08/08/17 09:34 Dose: 75 mg Pantoprazole Sodium (Protonix Ec Tab) 40 mg PO Q12 [facility] Last Admin: 08/08/17 10:02 Dose: 40 mg - Labs Labs: 08/08/17 16:07 08/08/17 16:07 PT 13.0 SECONDS (9.4-12.5) H 08/07/17 13:48 INR 1.14 (0.93-1.08) H 08/07/17 13:48 APTT 59.5 Seconds (25.1-36.5) H 08/08/17 05:30 - Constitutional Appears: Non-toxic, No Acute Distress - Head Exam Head Exam: ATRAUMATIC, NORMOCEPHALIC - Eye Exam Eye Exam: EOMI, PERRL Pupil Exam: NORMAL ACCOMODATION, PERRL - ENT Exam ENT Exam: Mucous Membranes Moist, Normal External Ear Exam, TM's Normal Bilaterally - Neck Exam Neck Exam: Full ROM, Normal Inspection - Respiratory Exam Respiratory Exam: Clear to Ausculation Bilateral, NORMAL BREATHING PATTERN. absent: Rales, Rhonchi, Wheezes - Cardiovascular Exam Cardiovascular Exam: REGULAR RHYTHM, RRR, +S1, +S2 - GI/Abdominal Exam GI & Abdominal Exam: Soft, Normal Bowel Sounds. absent: Distended, Tenderness - Extremities Exam Extremities Exam: Full ROM, Normal Inspection - Neurological Exam Neurological Exam: Alert, Awake, CN II-XII Intact, Oriented x3 - Psychiatric Exam Psychiatric exam: Normal Affect, Normal Mood - Skin Skin Exam: Intact, Normal Color Assessment and Plan - Assessment and Plan (Free Text) Assessment: 62 yo female with presentation for body aches, subjective fevers, congestion, and chest pressure found to have elevated troponin and increased leukocytosis. No bandemia noted. Negative Chest X-ray. [place] cultures sent. Influenza negative. Trend WBC. On Vancomycin and Zosyn in ER. Supportive care. Noted procalcitonin sent but patient not showing signs of sepsis. No strong evidence of pneumonia. Taken to Cardiac Cath today. Spoke with Dr. Leblanc. Thank you for allowing me to participate in the care of the patient, we will follow with you.
--- NOTE | 2017-08-09 00:29 | CON ---
DATE: CARDIOLOGY CONSULTATION HISTORY OF PRESENT ILLNESS: The patient is a 62-year-old female who has a history of hypertension, diabetes mellitus, has been experiencing flu-like symptoms since Tuesday last week. On , she collapsed at home because of weakness and yesterday she had a similar episode while she was trying to leave the bed to go to the bathroom, collapsed; her brought her to the emergency room. The patient was found to have abnormal EKG with evidence of inferior ischemia and a subtle ST elevation in lead V2. "Heart" team did not think that the patient is a candidate for acute intervention. Patient was then placed on aspirin and Plavix and therapeutic intravenous heparin regimen until I evaluated the patient this morning and when the patient was asked about chest pain, she mentioned that she may have had chest pain, but the overwhelming symptoms of her flu symptoms may have covered the complaint of chest pain. Patient is following with a architectural technician in [place], but denies having any coronary intervention in the past. She may have had a stress test many years ago. SOCIAL HISTORY: Nonsmoker. MEDICATIONS: Aspirin 81 mg once a day, Lipitor 40 mg once a day, Lopressor 25 mg twice a day, Plavix 75 mg once a day, vancomycin 1 g intravenously daily, Tamiflu 75 mg twice a day. REVIEW OF SYSTEMS: Patient did report fever and chills, but did not measure her temperature at home. PHYSICAL EXAMINATION: GENERAL: The patient is a middle-aged female, who does not appear to be in any distress. VITAL SIGNS: Blood pressure 108/62, heart rate , temperature 98.2, respirations 17. HEENT: Normocephalic. NECK: No JVD. CHEST: Bilateral rhonchi. HEART: S1 and S2, regular. ABDOMEN: Soft. EXTREMITIES: No edema. LABORATORY DATA: CBC: WBC 13.1, hemoglobin 12.7, hematocrit 38.3, platelet count 330,000. Today's SMA-7: Sodium 139, potassium 3.3, chloride 105, CO2 of 24, glucose 125, BUN 27, creatinine 0.9. Troponins were 4.26, 3.77, and 3.31. Most recent PTT was 69.5. I did review the EKGs in the emergency room and they all reveal sinus rhythm with right bundle branch block, left anterior fascicular block and ST-T wave changes consistent with inferolateral ischemia. ASSESSMENT: 1. Viral syndrome. Patient's serology is negative for influenza type A and B. 2. Acute bzz-SB-rfaqqdadp myocardial infarction. 3. Hypertension. 4. Diabetes mellitus. RECOOMENDATIONS: Case was discussed with the patient at length. Cardiac catheterization was recommended even at this scenario of viral syndrome. The procedure and its risks were explained to the patient, understood and agreed and the patient will be taken to the cardiac trestle mainternance laborer as soon possible for cardiac catheterization and possible intervention. Ezequiel Saldaña MD
[2017-08-09] MEDS: Pantoprazole 40 mg EC Tab PO SCH ×3 (01:19→21:09)
--- NOTE | 2017-08-09 04:27 | CP.PCM.PN ---
<Maury Callaway - Last Filed: 08/09/17 04:23> Subjective - Date & Time of Evaluation Date of Evaluation: 08/08/17 Time of Evaluation: 09:20 - Subjective Subjective: Patient seen and examined at bedside. States all her initial symptoms of body aches, chest pain, nausea, vomiting have resolved. Has no complaints at this time. Is aware of cardiac catheterization taking place today. Denies chest pain , nausea, vomiting, diarrhea, cough, headache, body aches, shortness of breath, fevers, chills. Objective - Vital Signs/Intake and Output Vital Signs (last 24 hours): Temp Pulse Resp BP Pulse Ox 98.2 F 75 20 98/63 L 98 08/09/17 00:01 08/09/17 02:00 08/09/17 00:01 08/09/17 00:01 08/09/17 00:01 Intake and Output: 08/08/17 08/09/17 18:59 06:59 Intake Total 120 Output Total 0 Balance 120 - Medications Medications: Current Medications Acetaminophen (Tylenol 325mg Tab) 650 mg PO Q6H PRN PRN Reason: Fever >100.4 F Aspirin (Aspirin Chewable) 81 mg PO DAILY [facility] Last Admin: 08/08/17 09:42 Dose: 81 mg Atorvastatin Calcium (Lipitor) 40 mg PO DIN [facility] Last Admin: 08/08/17 17:42 Dose: 40 mg Benzocaine/Menthol (Cepacol Sore Throat) 1 hardeep MT Q2H PRN PRN Reason: Sore Throat Clopidogrel Bisulfate (Plavix) 75 mg PO DAILY [facility] Last Admin: 08/08/17 09:41 Dose: 75 mg Sodium Chloride (Sodium Chloride 0.9%) 1,000 mls @ 100 mls/hr IV .Q10H [facility] Last Admin: 08/08/17 06:25 Dose: 100 mls/hr Vancomycin HCl (Vancomycin 1gm) 1 gm in 250 mls @ 167 mls/hr IVPB DAILY [facility] PRN Reason: Protocol Last Admin: 08/08/17 10:03 Dose: 167 mls/hr Ibuprofen (Motrin Tab) 600 mg PO Q6H PRN PRN Reason: Fever >100.4 F Insulin Human Regular (Humulin R Med) 0 units SC ACHS [facility] PRN Reason: Protocol Last Admin: 08/08/17 22:39 Dose: Not Given Metoprolol Tartrate (Lopressor) 25 mg PO 0800,1800 [facility] Last Admin: 08/08/17 17:37 Dose: Not Given Ondansetron HCl (Zofran Inj) 4 mg IVP Q6H PRN PRN Reason: Nausea/Vomiting Oseltamivir Phosphate (Tamiflu Cap) 75 mg PO Q12 [facility] PRN Reason: Protocol Last Admin: 08/09/17 01:19 Dose: 75 mg Pantoprazole Sodium (Protonix Ec Tab) 40 mg PO Q12 [facility] Last Admin: 08/09/17 01:19 Dose: 40 mg - Labs Labs: 08/08/17 16:07 08/08/17 16:07 PT 13.0 SECONDS (9.4-12.5) H 08/07/17 13:48 INR 1.14 (0.93-1.08) H 08/07/17 13:48 APTT 59.5 Seconds (25.1-36.5) H 08/08/17 05:30 - Constitutional Appears: Non-toxic, No Acute Distress - Head Exam Head Exam: ATRAUMATIC, NORMAL INSPECTION, NORMOCEPHALIC - Eye Exam Eye Exam: EOMI, Normal appearance - ENT Exam ENT Exam: Mucous Membranes Moist, Normal Exam - Neck Exam Neck Exam: Normal Inspection - Respiratory Exam Respiratory Exam: Clear to Ausculation Bilateral, NORMAL BREATHING PATTERN. absent: Rales, Rhonchi, Wheezes - Cardiovascular Exam Cardiovascular Exam: REGULAR RHYTHM, +S1, +S2 - GI/Abdominal Exam GI & Abdominal Exam: Soft, Normal Bowel Sounds - Extremities Exam Extremities Exam: Full ROM - Neurological Exam Neurological Exam: Alert, CN II-XII Intact, Oriented x3 - Psychiatric Exam Psychiatric exam: Normal Affect, Normal Mood - Skin Skin Exam: Intact, Normal Color, Warm Assessment and Plan - Assessment and Plan (Free Text) Assessment: 62 year old female with hx of HTN, HLD, DM, presents for body aches, subjective fevers, congestion, chest pressure, found to have elevated troponin: Plan: Chest pressure, r/o ACS: - Initial trop 3.99. EKG shows HR [address] depressions in inferior lateral leads. - Received ASA 325, plavix 75 mg, lopressor 25 mg, lipitor 40 mg in ED, heparin 5000 units IV in ED. - Started on ASA 81, plavix 75, lopressor 25 bid, [id number]. - Heparin drip - Currently on tele hold in the ED - Dr Saldaña will perform cath today Body aches, congestion, subjective fevers: 2/2 viral like illness, flu vs PNA vs UTI (less likely) vs gastroenteritis - Influenza rapid swab neg. Sent for serum testing - Given Tamiflu 1 dose in ED. Started tamiflu bid x 5 days. - Procal 0.10 , blood culture and urine culture show no growth after 24 hours - zofran prn, tylenol and motrin prn - Vanco and zosyn x 1 dose in ED - Leukocytosis 13.1, no bandemia. - Afebrile in ED - ID consulted states no strong evidence of pneumonia - Cont to monitor. Acute on chronic kidney disease: likely prerenal (dehydration) - BUN/Cr 27/0.9 after given 1L NS bolus in ED - GFR 35: stage 3 CKD - NS @ 100/hr Hx of HTN: - Hold home anti-HTN YOVANY-inhibitor in setting of hypotension - Hold HCTZ in setting of dehydration PPX: Protonix, Heparin drip Discussed with Dr. Jimena Callaway PGY1 <Herman Hess - Last Filed: 08/09/17 16:49> Objective - Vital Signs/Intake and Output Vital Signs (last 24 hours): Temp Pulse Resp BP Pulse Ox 98.1 F 80 18 99/64 L 96 08/09/17 12:00 08/09/17 14:00 08/09/17 12:00 08/09/17 12:00 08/09/17 05:48 Intake and Output: 08/09/17 08/09/17 06:59 18:59 Intake Total 240 250 Balance 240 250 - Medications Medications: Current Medications Acetaminophen (Tylenol 325mg Tab) 650 mg PO Q6H PRN PRN Reason: Fever >100.4 F Aspirin (Aspirin Chewable) 81 mg PO DAILY [facility] Last Admin: 08/09/17 09:30 Dose: 81 mg Atorvastatin Calcium (Lipitor) 40 mg PO DIN [facility] Last Admin: 08/08/17 17:42 Dose: 40 mg Benzocaine/Menthol (Cepacol Sore Throat) 1 hardeep MT Q2H PRN PRN Reason: Sore Throat Clopidogrel Bisulfate (Plavix) 75 mg PO DAILY [facility] Last Admin: 08/09/17 09:30 Dose: 75 mg Vancomycin HCl (Vancomycin 1gm) 1 gm in 250 mls @ 167 mls/hr IVPB DAILY [facility] PRN Reason: Protocol Last Admin: 08/09/17 09:30 Dose: 167 mls/hr Ibuprofen (Motrin Tab) 600 mg PO Q6H PRN PRN Reason: Pain, moderate (4-7) Insulin Human Regular (Humulin R Med) 0 units SC ACHS [facility] PRN Reason: Protocol Last Admin: 08/09/17 13:22 Dose: 3 units Metoprolol Tartrate (Lopressor) 25 mg PO 0800,1800 [facility] Last Admin: 08/09/17 07:59 Dose: Not Given Ondansetron HCl (Zofran Inj) 4 mg IVP Q6H PRN PRN Reason: Nausea/Vomiting Oseltamivir Phosphate (Tamiflu Cap) 75 mg PO Q12 [facility] PRN Reason: Protocol Last Admin: 08/09/17 09:30 Dose: 75 mg Pantoprazole Sodium (Protonix Ec Tab) 40 mg PO Q12 [facility] Last Admin: 08/09/17 09:31 Dose: 40 mg - Labs Labs: 08/09/17 05:30 08/09/17 05:30 PT 13.0 SECONDS (9.4-12.5) H 08/07/17 13:48 INR 1.14 (0.93-1.08) H 08/07/17 13:48 APTT 59.5 Seconds (25.1-36.5) H 08/08/17 05:30 Attending/Attestation - Attestation I have personally seen and examined this patient.: Yes I have fully participated in the care of the patient.: Yes I have reviewed all pertinent clinical information, including history, physical exam and plan: Yes Notes (Text): I have seen and examined the patient at bedside. Agree with the above note with the following additions/ exceptions: Briefly this is 62 year old female with history of HTN, DM-2, dyslipidemia who presented with flu like symptoms and found to have NSTEMI. Troponins are elevated. EKG reviewed. She was started on aspirin, plavix, heparin, lopressor and lipitor. Patient feels very tired and fatigued. Influenza negative. Patient has leukocytosis. Continue vancomycin and zosyn as per ID. CXR negative for pneumonia. Urinalysis pending. Will check FLP. Upon discharge patient will follow up with Dr Nation. Dr Herman Hess
[2017-08-09 06:39] LABS: BASO # 0.02 K/mm3 (0.0-2.0); BASO % 0.2 % (0.0-3.0); EOS # 0.1 (0.0-0.7); EOS % 0.5 % (1.5-5.0); GRAN # 6.76 (1.4-6.5); GRAN % 56.5 % (50.0-68.0); HEMOGLOBIN 12.1 g/dL (12.0-16.0); LYMPH # 4.3 (1.2-3.4); LYMPH % 36.2 % (22.0-35.0); MEAN CELL VOLUME 84.6 fl (80.0-105.0); MEAN CORPUSCULAR HEMOGLOBIN 27.4 pg (25.0-35.0); MEAN CORPUSCULAR HGB CONC 32.4 g/dl (31.0-37.0); MEAN PLATELET VOLUME 9.8 fl (7.0-11.0); MONO # 0.8 (0.1-0.6); MONO % 6.6 % (1.0-6.0); RBC 4.41 10^6/uL (3.5-6.1)
[2017-08-09 07:21] LABS: ALB/GLOB RATIO 1.3 (1.1-1.8); ALBUMIN 3.5 g/dL (3.0-4.8); ALT/SGPT 29 U/L (7-56); AST/SGOT 27 U/L (14-36); BLOOD UREA NITROGEN 14 mg/dL (7-21); CALCIUM 9.4 mg/dL (8.4-10.5); GFR AFRICAN-AMERICAN > 60; GFR NON-AFRICAN AMERICAN > 60; MAGNESIUM 1.9 mg/dL (1.7-2.2)
[2017-08-09] MEDS: Insulin Reg-MEDIUM-Coverage SC SCH ×4 (07:58→21:40)
[2017-08-09] MEDS ORDERED: Potassium & Sodium Phosphate PO ONE (08:49)
[2017-08-09] MEDS: Vancomycin 1gm in NS 250ml 1 GM/250 ML BAG IVPB SCH (09:30)
--- NOTE | 2017-08-09 10:35 | CARD ---
APPROVED REPORT EKG Measurement Heart Qute18SITY [place] 138P39 [id number] <Conclusion> Normal sinus rhythm Right bundle branch block LAHB STTW changes Septal infarct, age unknown No change
--- NOTE | 2017-08-09 13:31 | CARD ---
APPROVED REPORT EXAM: Two-dimensional and M-mode echocardiogram with Doppler and color Doppler. INDICATION Non STEMI 2D DIMENSIONS IVSd1.6 (0.7-1.1cm)LVDd3.4 (3.9-5.9cm) PWd1.1 (0.7-1.1cm)LVDs2.2 (2.5-4.0cm) FS (%) 34.3 %LVEF (%)64.5 (>50%) M-Mode DIMENSIONS Aortic Root2.07 (2.2-3.7cm)Aortic Cusp Exc.1.42 (1.5-2.0cm) Aortic Valve AoV Peak Urfvgjkv010.8cm/Manjinder Peak GR.7mmHg Mitral Valve MV E Gilolhht29.2cm/sMV DECEL LLST345vlGD A Hwbiwzyq48.2cm/s E/A ratio1.4 TDI E/Lateral E'0.0E/Medial E'0.0 Tricuspid Valve TR Peak Reeutday291yt/sTR Peak Gr.29mmHg LEFT VENTRICLE The left ventricle is normal size. There is mild to moderate concentric left ventricular hypertrophy. The left ventricular function is normal. The left ventricular ejection fraction is within the normal range. There is normal LV segmental wall motion. The left ventricular diastolic function is normal. RIGHT VENTRICLE The right ventricle is normal size. There is normal right ventricular wall thickness. The right ventricular systolic function is normal. ATRIA The left atrium size is normal. The right atrium size is normal. AORTIC VALVE The aortic valve is not well visualized. No aortic regurgitation is present. There is no aortic valvular stenosis. MITRAL VALVE The mitral valve is normal in structure. There is no mitral valve regurgitation noted. TRICUSPID VALVE The tricuspid valve is normal in structure. There is trace tricuspid regurgitation. GREAT VESSELS The aortic root is normal in size. The IVC was not visualized. PERICARDIAL EFFUSION There is a trace circumferential pericardial effusion. <Conclusion> The left ventricle is normal size. There is mild to moderate concentric left ventricular hypertrophy. The left ventricular function is normal. The left ventricular ejection fraction is within the normal range. There is normal LV segmental wall motion. The left ventricular diastolic function is normal. There is a trace circumferential pericardial effusion.
--- NOTE | 2017-08-09 14:51 | CP.PCM.DIS ---
<Maury Callaway - Last Filed: 08/11/17 00:41> Provider - Provider Date of Admission: 08/07/17 15:45 Attending physician: Herman Hess MD Primary care physician: Zelalem Nation MD Consults: Cardiology: Dr. Saldaña Infectious Disease: Dr. Davenport Time Spent in preparation of Discharge (in minutes): 45 Diagnosis - Discharge Diagnosis (1) NSTEMI (non-ST elevated myocardial infarction) Status: Acute Priority: High (2) Diabetes mellitus Status: Chronic Priority: High (3) ICAO (internal carotid artery occlusion) Status: Chronic Priority: High (4) Viral syndrome Status: Acute Priority: Medium Hospital Course - Lab Results Lab Results: Micro Results 08/07/17 20:00 Blood Blood Culture - Preliminary NO GROWTH AFTER 24 HOURS 08/07/17 16:45 Blood Blood Culture - Preliminary NO GROWTH AFTER 24 HOURS Most Recent Lab Values WBC 12.0 10^3/ul (4.5-11.0) H 08/09/17 05:30 RBC 4.41 10^6/uL (3.5-6.1) 08/09/17 05:30 Hgb 12.1 g/dL (12.0-16.0) 08/09/17 05:30 Hct 37.3 % (36.0-48.0) 08/09/17 05:30 MCV 84.6 fl (80.0-105.0) 08/09/17 05:30 MCH 27.4 pg (25.0-35.0) 08/09/17 05:30 MCHC 32.4 g/dl (31.0-37.0) 08/09/17 05:30 RDW 13.0 % (11.5-14.5) 08/09/17 05:30 Plt Count 294 10^3/uL (120.0-450.0) 08/09/17 05:30 MPV 9.8 fl (7.0-11.0) 08/09/17 05:30 Gran % 56.5 % (50.0-68.0) 08/09/17 05:30 Lymph % (Auto) 36.2 % (22.0-35.0) H 08/09/17 05:30 Karnes % (Auto) 6.6 % (1.0-6.0) H 08/09/17 05:30 Eos % (Auto) 0.5 % (1.5-5.0) L 08/09/17 05:30 Baso % (Auto) 0.2 % (0.0-3.0) 08/09/17 05:30 Gran # 6.76 (1.4-6.5) H 08/09/17 05:30 Lymph # (Auto) 4.3 (1.2-3.4) H 08/09/17 05:30 Karnes # (Auto) 0.8 (0.1-0.6) H 08/09/17 05:30 Eos # (Auto) 0.1 (0.0-0.7) 08/09/17 05:30 Baso # (Auto) 0.02 K/mm3 (0.0-2.0) 08/09/17 05:30 PT 13.0 SECONDS (9.4-12.5) H 08/07/17 13:48 INR 1.14 (0.93-1.08) H 08/07/17 13:48 APTT 59.5 Seconds (25.1-36.5) H 08/08/17 05:30 Sodium 140 mmol/L (132-148) 08/09/17 05:30 Potassium 3.7 mmol/L (3.6-5.0) 08/09/17 05:30 Chloride 107 mmol/L (98-107) 08/09/17 05:30 Carbon Dioxide 24 mmol/L (21-33) 08/09/17 05:30 Anion Gap 13 (10-20) 08/09/17 05:30 BUN 14 mg/dL (7-21) 08/09/17 05:30 Creatinine 0.7 mg/dl (0.7-1.2) 08/09/17 05:30 Est GFR ( Amer) > 60 08/09/17 05:30 Est GFR (Non-Af Amer) > 60 08/09/17 05:30 POC Glucose (mg/dL) 237 mg/dL (65-110) H 08/09/17 11:31 Random Glucose 212 mg/dL (70-110) H 08/09/17 05:30 Hemoglobin A1c 7.9 % (4.2-6.5) H 08/07/17 16:45 Calcium 9.4 mg/dL (8.4-10.5) 08/09/17 05:30 Phosphorus 2.4 mg/dL (2.5-4.5) L 08/09/17 05:30 Magnesium 1.9 mg/dL (1.7-2.2) 08/09/17 05:30 Total Bilirubin 0.7 mg/dL (0.2-1.3) 08/09/17 05:30 AST 27 U/L (14-36) 08/09/17 05:30 ALT 29 U/L (7-56) 08/09/17 05:30 Alkaline Phosphatase 53 U/L (38-126) 08/09/17 05:30 Lactate Dehydrogenase 708 U/L (333-699) H 08/07/17 13:48 Total Creatine Kinase 183 U/L (35-230) 08/07/17 16:45 Troponin I 2.84 ng/mL H* 08/08/17 16:07 Total Protein 6.2 g/dL (5.8-8.3) 08/09/17 05:30 Albumin 3.5 g/dL (3.0-4.8) 08/09/17 05:30 Globulin 2.8 gm/dL 08/09/17 05:30 Albumin/Globulin Ratio 1.3 (1.1-1.8) 08/09/17 05:30 Triglycerides 224 mg/dL (35-160) H 08/07/17 16:45 Cholesterol 173 mg/dL (130-200) 08/07/17 16:45 LDL Cholesterol Direct 115 mg/dL (0-129) 08/07/17 16:45 HDL Cholesterol 34 mg/dL (29-60) 08/07/17 16:45 Procalcitonin 0.10 NG/ML (0.19-0.49) L 08/07/17 16:45 Influenza Typ A,B (EIA) Negative for flu a/b (NEGATIVE) 08/07/17 12:30 - Hospital Course Hospital Course: Patient is a 62 year old female with hx of HTN, HLD, DM, who presented to ED for body aches, congestion, and subjective fevers. She also felt midsternal chest pressure at the time, feels like an "elephant sitting on her chest", rates it 7/10, intermittent, lasting 10-15 minutes at a time, started while she was in bed, unrelated to exertional activities, radiating to right jaw, had associated sob, diaphoresis, mild abdominal pain. Reported bilious, nonbloody emesis for past few days, decreased appetite and PO intake. Due to poor intake, patient also reported that she felt dizzy and had 2 falls at home. Patient was found to have had an NSTEMI and likely viral syndrome. Cardiology and Infectious disease were consulted. For NSTEMi patient was placed on heparin drip and given the appropriate medications including apsirin, plavix, lipitor, lopressor. For viral like syndrome patient was placed on antibiotics and tamiflu. Catheterization performed on patient revealed critical mid-circumflex stenosis for which a drug eluting stent was placed. Patient also complained of dizziness, so orthostatic vitals were ordered as well as carotid ultrasound. Orthostatic vitals were positive therefore fluid hydration was discussed with patient. Carotid ultrasound revealed significant stenosis of right proximal ICA which will be medically managed considering patient did not experience syncope or focal neurological deficits. Upon being discharge patient was instructed to follow up with [facility], within 1 week as well as her primary care doctor Dr. Nation in a week. Cardiac rehab referral was provided as well as weight loss reduction program encouragement. Patient was in agreement with plan of discharge and then discharged. Case reviewed and discussed with Dr. Jimena Callaway PGY1 Discharge Exam - Head Exam Head Exam: ATRAUMATIC, NORMAL INSPECTION, NORMOCEPHALIC - Eye Exam Eye Exam: EOMI, Normal appearance Pupil Exam: NORMAL ACCOMODATION - ENT Exam ENT Exam: Mucous Membranes Moist - Neck Exam Neck exam: Normal Inspection - Respiratory Exam Respiratory Exam: Clear to PA & Lateral, NORMAL BREATHING PATTERN, UNREMARKABLE - Cardiovascular Exam Cardiovascular Exam: REGULAR RHYTHM, +S1, +S2 - GI/Abdominal Exam GI & Abdominal Exam: Normal Bowel Sounds, Unremarkable - Back Exam Back exam: NORMAL INSPECTION - Neurological Exam Neurological exam: Alert, CN II-XII Intact, Oriented x3 - Psychiatric Exam Psychiatric exam: Normal Affect, Normal Mood - Skin Skin Exam: Intact, Normal Color, Warm Discharge Plan - Discharge Medications Prescriptions: Aspirin [Aspirin Chewable] 81 mg PO DAILY #30 chew Atorvastatin [Lipitor] 40 mg PO DIN #30 tab Clopidogrel [Plavix] 75 mg PO DAILY #30 tab Metoprolol Tartrate [Lopressor] 25 mg PO 0800,1800 #60 tab Pantoprazole Sodium [Protonix] 40 mg PO DAILY 30 Days #30 ect - Follow Up Plan Condition: FAIR Disposition: HOME/ ROUTINE Instructions: Myocardial Infarction (DC), Heart Healthy Diet (DC), Sepsis (GEN) , Low Sodium Diet (DC), Near Syncope (ED), Heart Catheterization (DC), Coronary Artery Disease in Women (DC) Additional Instructions: Discharge instructions 1. Follow up with [facility], within 1 week 2. Follow up with primary care doctor Dr Bety Almaraz in a week. 3. Cardiac rehab referral 4. Encourage Weight loss reduction program Med changes STOP lisinopril 2.5 mg daily, HCTZ 12.5 mg daily Lipitor has a new dosage, 40mg daily New meds: plavix, metoprolol Continue metformin and aspirin Nursing 1. If symptoms return, please report to nearest Emergency Department or call 911. Referrals: Zelalem Nation [Primary Care Provider] - Connor Han MD [Medical Doctor] - <Herman Hess - Last Filed: 08/11/17 17:08> Provider - Provider Date of Admission: 08/07/17 15:45 Attending physician: Herman Hess MD Primary care physician: Zelalem Nation MD Hospital Course - Lab Results Lab Results: Micro Results 08/07/17 16:45 Blood Blood Culture - Preliminary NO GROWTH AFTER 4 DAYS 08/07/17 20:00 Blood Blood Culture - Preliminary NO GROWTH AFTER 3 DAYS Most Recent Lab Values WBC 10.0 10^3/ul (4.5-11.0) 08/10/17 06:00 RBC 4.06 10^6/uL (3.5-6.1) 08/10/17 06:00 Hgb 11.0 g/dL (12.0-16.0) L 08/10/17 06:00 Hct 34.1 % (36.0-48.0) L 08/10/17 06:00 MCV 84.0 fl (80.0-105.0) 08/10/17 06:00 MCH 27.1 pg (25.0-35.0) 08/10/17 06:00 MCHC 32.3 g/dl (31.0-37.0) 08/10/17 06:00 RDW 12.9 % (11.5-14.5) 08/10/17 06:00 Plt Count 274 10^3/uL (120.0-450.0) 08/10/17 06:00 MPV 9.7 fl (7.0-11.0) 08/10/17 06:00 Gran % 60.0 % (50.0-68.0) 08/10/17 06:00 Lymph % (Auto) 32.9 % (22.0-35.0) 08/10/17 06:00 Karnes % (Auto) 5.8 % (1.0-6.0) 08/10/17 06:00 Eos % (Auto) 1.1 % (1.5-5.0) L 08/10/17 06:00 Baso % (Auto) 0.2 % (0.0-3.0) 08/10/17 06:00 Gran # 5.99 (1.4-6.5) 08/10/17 06:00 Lymph # (Auto) 3.3 (1.2-3.4) 08/10/17 06:00 Karnes # (Auto) 0.6 (0.1-0.6) 08/10/17 06:00 Eos # (Auto) 0.1 (0.0-0.7) 08/10/17 06:00 Baso # (Auto) 0.02 K/mm3 (0.0-2.0) 08/10/17 06:00 PT 13.0 SECONDS (9.4-12.5) H 08/07/17 13:48 INR 1.14 (0.93-1.08) H 08/07/17 13:48 APTT 59.5 Seconds (25.1-36.5) H 08/08/17 05:30 Sodium 142 mmol/L (132-148) 08/10/17 06:00 Potassium 3.6 mmol/L (3.6-5.0) 08/10/17 06:00 Chloride 107 mmol/L (98-107) 08/10/17 06:00 Carbon Dioxide 27 mmol/L (21-33) 08/10/17 06:00 Anion Gap 11 (10-20) 08/10/17 06:00 BUN 10 mg/dL (7-21) 08/10/17 06:00 Creatinine 0.7 mg/dl (0.7-1.2) 08/10/17 06:00 Est GFR ( Amer) > 60 08/10/17 06:00 Est GFR (Non-Af Amer) > 60 08/10/17 06:00 POC Glucose (mg/dL) 218 mg/dL (65-110) H 08/10/17 11:26 Random Glucose 206 mg/dL (70-110) H 08/10/17 06:00 Hemoglobin A1c 7.9 % (4.2-6.5) H 08/07/17 16:45 Calcium 8.8 mg/dL (8.4-10.5) 08/10/17 06:00 Phosphorus 2.4 mg/dL (2.5-4.5) L 08/09/17 05:30 Magnesium 1.9 mg/dL (1.7-2.2) 08/09/17 05:30 Total Bilirubin 0.6 mg/dL (0.2-1.3) 08/10/17 06:00 AST 28 U/L (14-36) 08/10/17 06:00 ALT 31 U/L (7-56) 08/10/17 06:00 Alkaline Phosphatase 56 U/L (38-126) 08/10/17 06:00 Lactate Dehydrogenase 708 U/L (333-699) H 08/07/17 13:48 Total Creatine Kinase 183 U/L (35-230) 08/07/17 16:45 Troponin I 2.84 ng/mL H* 08/08/17 16:07 Total Protein 5.8 g/dL (5.8-8.3) 08/10/17 06:00 Albumin 3.1 g/dL (3.0-4.8) 08/10/17 06:00 Globulin 2.7 gm/dL 08/10/17 06:00 Albumin/Globulin Ratio 1.1 (1.1-1.8) 08/10/17 06:00 Triglycerides 224 mg/dL (35-160) H 08/07/17 16:45 Cholesterol 173 mg/dL (130-200) 08/07/17 16:45 LDL Cholesterol Direct 115 mg/dL (0-129) 08/07/17 16:45 HDL Cholesterol 34 mg/dL (29-60) 08/07/17 16:45 Procalcitonin 0.10 NG/ML (0.19-0.49) L 08/07/17 16:45 Influenza Typ A,B (EIA) Negative for flu a/b (NEGATIVE) 08/07/17 12:30 Attending/Attestation - Attestation I have personally seen and examined this patient.: Yes I have fully participated in the care of the patient.: Yes I have reviewed all pertinent clinical information, including history, physical exam and plan: Yes Notes (Text): I have seen and examined the patient at bedside. Agree with the above note with the following additions/ exceptions: Briefly this is 62 year old female with history of HTN, DM-2, dyslipidemia who presented with flu like symptoms and found to have NSTEMI. Patient underwent cardiac cath and BE was placed in mid circumflex. Continue asa, plavix, lopressor and lipitor. Patient feels well and denies any complaints. Patient has been walking in the hallway without any complaints. Influenza negative. Leukocytosis has resolved. Antibiotics were stopped yesterday. CXR negative for pneumonia. Upon discharge patient will follow up with Dr Nation. Also follow up with [facility] Dr Herman Hess
--- NOTE | 2017-08-09 16:16 | CP.PCM.PN ---
<Maury Callaway - Last Filed: 08/09/17 16:25> Subjective - Date & Time of Evaluation Date of Evaluation: 08/09/17 Time of Evaluation: 06:30 - Subjective Subjective: Patient seen and examined at bedside in no acute distress and no complaints. Patient states her symptoms she initially had which prompted her to go to the ED have resolved. Patient was noted to be somnolent but states she is just annoyed that she is sick. Admits to dizziness associated with standing up. Patient denies chest pain, shortness of breath, headache, nausea, vomiting, diarrhea, abdominal pain, headache, cough. Objective - Vital Signs/Intake and Output Vital Signs (last 24 hours): Temp Pulse Resp BP Pulse Ox 98.1 F 76 18 99/64 L 96 08/09/17 12:00 08/09/17 12:00 08/09/17 12:00 08/09/17 12:00 08/09/17 05:48 Intake and Output: 08/09/17 08/09/17 06:59 18:59 Intake Total 240 Balance 240 - Medications Medications: Current Medications Acetaminophen (Tylenol 325mg Tab) 650 mg PO Q6H PRN PRN Reason: Fever >100.4 F Aspirin (Aspirin Chewable) 81 mg PO DAILY [facility] Last Admin: 08/09/17 09:30 Dose: 81 mg Atorvastatin Calcium (Lipitor) 40 mg PO DIN [facility] Last Admin: 08/08/17 17:42 Dose: 40 mg Benzocaine/Menthol (Cepacol Sore Throat) 1 hardeep MT Q2H PRN PRN Reason: Sore Throat Clopidogrel Bisulfate (Plavix) 75 mg PO DAILY [facility] Last Admin: 08/09/17 09:30 Dose: 75 mg Vancomycin HCl (Vancomycin 1gm) 1 gm in 250 mls @ 167 mls/hr IVPB DAILY [facility] PRN Reason: Protocol Last Admin: 08/09/17 09:30 Dose: 167 mls/hr Ibuprofen (Motrin Tab) 600 mg PO Q6H PRN PRN Reason: Pain, moderate (4-7) Insulin Human Regular (Humulin R Med) 0 units SC ACHS [facility] PRN Reason: Protocol Last Admin: 08/09/17 13:22 Dose: 3 units Metoprolol Tartrate (Lopressor) 25 mg PO 0800,1800 [facility] Last Admin: 08/09/17 07:59 Dose: Not Given Ondansetron HCl (Zofran Inj) 4 mg IVP Q6H PRN PRN Reason: Nausea/Vomiting Oseltamivir Phosphate (Tamiflu Cap) 75 mg PO Q12 [facility] PRN Reason: Protocol Last Admin: 08/09/17 09:30 Dose: 75 mg Pantoprazole Sodium (Protonix Ec Tab) 40 mg PO Q12 [facility] Last Admin: 08/09/17 09:31 Dose: 40 mg - Labs Labs: 08/09/17 05:30 08/09/17 05:30 PT 13.0 SECONDS (9.4-12.5) H 08/07/17 13:48 INR 1.14 (0.93-1.08) H 08/07/17 13:48 APTT 59.5 Seconds (25.1-36.5) H 08/08/17 05:30 - Constitutional Appears: Non-toxic, No Acute Distress - Head Exam Head Exam: ATRAUMATIC, NORMAL INSPECTION, NORMOCEPHALIC - Eye Exam Eye Exam: EOMI, Normal appearance - ENT Exam ENT Exam: Mucous Membranes Moist - Neck Exam Neck Exam: Normal Inspection - Respiratory Exam Respiratory Exam: Clear to Ausculation Bilateral, NORMAL BREATHING PATTERN. absent: Rhonchi, Wheezes - Cardiovascular Exam Cardiovascular Exam: REGULAR RHYTHM, +S1, +S2 - GI/Abdominal Exam GI & Abdominal Exam: Soft, Normal Bowel Sounds - Extremities Exam Extremities Exam: Normal Inspection - Back Exam Back Exam: NORMAL INSPECTION - Neurological Exam Neurological Exam: Alert, Awake, Oriented x3 - Psychiatric Exam Psychiatric exam: Normal Affect, Normal Mood - Skin Skin Exam: Intact, Normal Color, Warm Assessment and Plan - Assessment and Plan (Free Text) Assessment: 62 year old female with hx of HTN, HLD, DM, presents for body aches, subjective fevers, congestion, chest pressure, found to have elevated troponin: Plan: NSTEMI - Initial trop 3.99. EKG shows HR [address] depressions in inferior lateral leads. - Received ASA 325, plavix 75 mg, lopressor 25 mg, lipitor 40 mg in ED, heparin 5000 units IV in ED. - Started on ASA 81, plavix 75, lopressor 25 bid, lipitor 40. - Cath performed; Critical mid-circumflex stenosis. Drug eluting stent placed. Body aches, congestion, subjective fevers 2/2 viral like illness - Influenza rapid swab neg. Sent for serum testing - Discontinue tamiflu as influenza neg - Procal 0.10 , blood culture and urine culture show no growth after 24 hours - zofran prn, tylenol and motrin prn - Vanco and zosyn discontinued - Leukocytosis 12, no bandemia. - Afebrile - ID consulted states no strong evidence of pneumonia - Cont to monitor. Dizziness -Carotid doppler ordered; results pending -Orthostatic vitals ordered -Will continue with IVF@100 Right lower extremity pain -Venous duplex ordered; results pending History of HTN - Hold home anti-HTN YOVANY-inhibitor in setting of hypotension - Hold HCTZ in setting of dehydration PPX: Protonix, Heparin drip Discussed with Dr. Jimena Callaway PGY1 <Herman Hess - Last Filed: 08/10/17 15:07> Objective - Vital Signs/Intake and Output Vital Signs (last 24 hours): Temp Pulse Resp BP Pulse Ox 98.7 F 76 18 113/77 95 08/10/17 12:00 08/10/17 12:00 08/10/17 12:00 08/10/17 12:00 08/10/17 05:40 Intake and Output: 08/10/17 08/10/17 06:59 18:59 Intake Total 240 Balance 240 - Labs Labs: 08/10/17 06:00 08/10/17 06:00 PT 13.0 SECONDS (9.4-12.5) H 08/07/17 13:48 INR 1.14 (0.93-1.08) H 08/07/17 13:48 APTT 59.5 Seconds (25.1-36.5) H 08/08/17 05:30 Attending/Attestation - Attestation I have personally seen and examined this patient.: Yes I have fully participated in the care of the patient.: Yes I have reviewed all pertinent clinical information, including history, physical exam and plan: Yes Notes (Text): I have seen and examined the patient at bedside. Agree with the above note with the following additions/ exceptions: Briefly this is 62 year old female with history of HTN, DM-2, dyslipidemia who presented with flu like symptoms and found to have NSTEMI. Patient underwent cardiac cath and BE was placed in mid circumflex. Continue asa, plavix, lopressor and lipitor. Patient feels very tired, fatigued and dizzy. Will order orthostatics and PT eval. Influenza negative. Patient has leukocytosis however there is no bandemia. Stop antibiotics. CXR negative for pneumonia. Upon discharge patient will follow up with Dr Nation. Dr Herman Hess
--- NOTE | 2017-08-09 16:58 | CP.PCM.PN ---
Subjective - Date & Time of Evaluation Date of Evaluation: 08/09/17 Time of Evaluation: 14:30 - Subjective Subjective: Infectious Disease Follow Up: August 09, 2017 62 yo female with extensive medical history that includes HTN, HLD, and DM presents with with 4 day history of body aches, subjective fevers, congestion, and chest pressure. Found to have elevated troponins. The patient was found to be also tachycardic and with leukocytosis of 18.8. Influenza screen negative. Reports sore throat and body aches as well. Chest X-ray does not show active disease. Taken to cardiac cath today. Leukocytosis resolved 12. Troponin remains elevated. Objective - Vital Signs/Intake and Output Vital Signs (last 24 hours): Temp Pulse Resp BP Pulse Ox 98.1 F 80 18 99/64 L 96 08/09/17 12:00 08/09/17 14:00 08/09/17 12:00 08/09/17 12:00 08/09/17 05:48 Intake and Output: 08/09/17 08/09/17 06:59 18:59 Intake Total 240 250 Balance 240 250 - Medications Medications: Current Medications Acetaminophen (Tylenol 325mg Tab) 650 mg PO Q6H PRN PRN Reason: Fever >100.4 F Aspirin (Aspirin Chewable) 81 mg PO DAILY [facility] Last Admin: 08/09/17 09:30 Dose: 81 mg Atorvastatin Calcium (Lipitor) 40 mg PO DIN [facility] Last Admin: 08/08/17 17:42 Dose: 40 mg Benzocaine/Menthol (Cepacol Sore Throat) 1 hardeep MT Q2H PRN PRN Reason: Sore Throat Clopidogrel Bisulfate (Plavix) 75 mg PO DAILY [facility] Last Admin: 08/09/17 09:30 Dose: 75 mg Vancomycin HCl (Vancomycin 1gm) 1 gm in 250 mls @ 167 mls/hr IVPB DAILY [facility] PRN Reason: Protocol Last Admin: 08/09/17 09:30 Dose: 167 mls/hr Ibuprofen (Motrin Tab) 600 mg PO Q6H PRN PRN Reason: Pain, moderate (4-7) Insulin Human Regular (Humulin R Med) 0 units SC ACHS [facility] PRN Reason: Protocol Last Admin: 08/09/17 13:22 Dose: 3 units Metoprolol Tartrate (Lopressor) 25 mg PO 0800,1800 [facility] Last Admin: 08/09/17 07:59 Dose: Not Given Ondansetron HCl (Zofran Inj) 4 mg IVP Q6H PRN PRN Reason: Nausea/Vomiting Oseltamivir Phosphate (Tamiflu Cap) 75 mg PO Q12 [facility] PRN Reason: Protocol Last Admin: 08/09/17 09:30 Dose: 75 mg Pantoprazole Sodium (Protonix Ec Tab) 40 mg PO Q12 [facility] Last Admin: 08/09/17 09:31 Dose: 40 mg - Labs Labs: 08/09/17 05:30 08/09/17 05:30 PT 13.0 SECONDS (9.4-12.5) H 08/07/17 13:48 INR 1.14 (0.93-1.08) H 08/07/17 13:48 APTT 59.5 Seconds (25.1-36.5) H 08/08/17 05:30 - Constitutional Appears: Non-toxic, No Acute Distress, Chronically Ill - Head Exam Head Exam: ATRAUMATIC, NORMOCEPHALIC - Eye Exam Eye Exam: EOMI, PERRL Pupil Exam: NORMAL ACCOMODATION, PERRL - ENT Exam ENT Exam: Mucous Membranes Moist, Normal External Ear Exam, TM's Normal Bilaterally - Neck Exam Neck Exam: Full ROM, Normal Inspection - Respiratory Exam Respiratory Exam: Clear to Ausculation Bilateral, NORMAL BREATHING PATTERN. absent: Rales, Rhonchi, Wheezes - Cardiovascular Exam Cardiovascular Exam: REGULAR RHYTHM, RRR, +S1, +S2 - GI/Abdominal Exam GI & Abdominal Exam: Soft, Normal Bowel Sounds. absent: Distended, Tenderness - Extremities Exam Extremities Exam: Full ROM, Normal Inspection - Neurological Exam Neurological Exam: Alert, Awake, CN II-XII Intact, Oriented x3 - Psychiatric Exam Psychiatric exam: Normal Affect, Normal Mood - Skin Skin Exam: Intact, Normal Color Assessment and Plan - Assessment and Plan (Free Text) Assessment: 62 yo female with presentation for body aches, subjective fevers, congestion, and chest pressure found to have elevated troponin and increased leukocytosis. No bandemia noted. Negative Chest X-ray. [place] cultures sent. Influenza negative. Trend WBC. On Vancomycin and Zosyn in ER. Supportive care. Noted procalcitonin sent but patient not showing signs of sepsis. No strong evidence of pneumonia. Taken to Cardiac Cath yesterday. Can stop antibiotics at this point. Negative cultures. Thank you for allowing me to participate in the care of the patient, we will follow with you.
--- NOTE | 2017-08-09 17:08 | PN ---
DATE: SUBJECTIVE: The patient denies chest pain or groin pain, but she feels weak and exhausted. PHYSICAL EXAMINATION: VITAL SIGNS: Blood pressure 96/54, heart rate 64, temperature 97.6, respirations 20. HEENT: Normocephalic. NECK: No JVD. CHEST: Clear. HEART: S1, S2, regular. ABDOMEN: Soft. EXTREMITIES: No groin hematoma. Adequate distal pulses. LABORATORY DATA: EKG today revealed sinus rhythm, right bundle branch block, left posterior fascicular block and nonspecific ST-T wave changes. Today's hemoglobin and hematocrit 12.1 and 37.3, white count 12.0, platelet count 194,000. SMA-7: Today's sodium 140, potassium 3.7, chloride 107, CO2 of 24, glucose 112, BUN 14, creatinine 0.7. Blood cultures are negative after 24 hours. ASSESSMENT: 1. Status post non-ST elevation myocardial infarction with stenting to critical mid circumflex artery disease. 2. Viral illness. 3. Uncontrolled diabetes mellitus. RECOMMENDATIONS: Continue aspirin 81 mg once a day, Lipitor 40 mg once a day, Lopressor 25 mg twice a day, Plavix 75 mg once a day, Tamiflu 75 mg twice a day, vancomycin at 1 g intravenously daily. Obtain an echocardiogram. Ezequiel Saldaña MD
--- NOTE | 2017-08-09 18:20 | US ---
PROCEDURE: Right lower extremity venous US HISTORY: Leg pain and swelling. Evaluate for DVT. PHYSICIAN(S): Eliseo Felder M.D. TECHNIQUE: Duplex sonography and color-flow Doppler with graded compression were used to evaluate the deep venous system of the right lower extremity. FINDINGS: The visualized deep venous system of the right lower extremity is sonographically normal and compressible. Normal waveforms and augmentation are seen. There is no sonographic evidence for deep venous thrombosis in the visualized segments of the right lower extremity. IMPRESSION: 1. No sonographic evidence for deep venous thrombosis in the visualized segments of the right lower extremity.
--- NOTE | 2017-08-09 18:23 | US ---
PROCEDURE: Bilateral carotid artery duplex ultrasound HISTORY: Carotid stenosis PHYSICIAN(S): Eliseo eFlder MD. TECHNIQUE: Duplex sonography and color-flow Doppler were used to evaluate the carotid bifurcations and limited segments of the vertebral arteries bilaterally. FINDINGS: There is mild to moderate focal heterogeneous plaque noted at the carotid bifurcations bilaterally. The peak systolic velocity in the proximal right internal carotid artery is 178 cm/sec. This corresponds to a 60-79 percent proximal right ICA stenosis. Normal systolic velocities are noted in the proximal right external carotid artery. There is antegrade flow in the right vertebral artery. The peak systolic velocity in the proximal left internal carotid artery is 89 cm/sec. This corresponds to a 20 to 39% proximal left ICA stenosis. Normal systolic velocities are noted in the proximal left external carotid artery. There is antegrade flow in the dominant left vertebral artery. IMPRESSION: 1. 60-79 percent proximal right ICA stenosis. 2. 20-39 percent proximal left ICA stenosis 3. Antegrade flow in both vertebral arteries.
[2017-08-10 05:44] VITALS: O2SAT 95
[2017-08-10 06:38] LABS: BASO # 0.02 K/mm3 (0.0-2.0); BASO % 0.2 % (0.0-3.0); EOS # 0.1 (0.0-0.7); EOS % 1.1 % (1.5-5.0); GRAN # 5.99 (1.4-6.5); LYMPH # 3.3 (1.2-3.4); LYMPH % 32.9 % (22.0-35.0); MEAN CORPUSCULAR HEMOGLOBIN 27.1 pg (25.0-35.0); MEAN CORPUSCULAR HGB CONC 32.3 g/dl (31.0-37.0); MEAN PLATELET VOLUME 9.7 fl (7.0-11.0); MONO # 0.6 (0.1-0.6); MONO % 5.8 % (1.0-6.0); RBC 4.06 10^6/uL (3.5-6.1); RED CELL DISTRIBUTION WIDTH 12.9 % (11.5-14.5)
[2017-08-10 07:04] LABS: ALB/GLOB RATIO 1.1 (1.1-1.8); ALBUMIN 3.1 g/dL (3.0-4.8); ALT/SGPT 31 U/L (7-56); AST/SGOT 28 U/L (14-36); BLOOD UREA NITROGEN 10 mg/dL (7-21); CALCIUM 8.8 mg/dL (8.4-10.5); GFR AFRICAN-AMERICAN > 60; GFR NON-AFRICAN AMERICAN > 60
[2017-08-10] MEDS: Insulin Reg-MEDIUM-Coverage SC SCH ×2 (08:09→12:01)
[2017-08-10] MEDS: Pantoprazole 40 mg EC Tab PO SCH (09:34)
[2017-08-10] MEDS: Vancomycin 1gm in NS 250ml 1 GM/250 ML BAG IVPB SCH (09:34)
[2017-08-10 12:14] VITALS: BP 113/77; PULSE 76; RESP 18; TEMP 98.7
--- NOTE | 2017-08-10 13:53 | CP.PCM.PN ---
Subjective - Date & Time of Evaluation Date of Evaluation: 08/10/17 Time of Evaluation: 11:30 - Subjective Subjective: Infectious Disease Follow Up: August 10, 2017 62 yo female with extensive medical history that includes HTN, HLD, and DM presents with with 4 day history of body aches, subjective fevers, congestion, and chest pressure. Found to have elevated troponins. The patient was found to be also tachycardic and with leukocytosis of 18.8. Influenza screen negative. Reports sore throat and body aches as well. Chest X-ray does not show active disease. Taken to cardiac cath today. Leukocytosis resolved... currently at 10. Troponin remains elevated. Objective - Vital Signs/Intake and Output Vital Signs (last 24 hours): Temp Pulse Resp BP Pulse Ox 98.7 F 76 18 113/77 95 08/10/17 12:00 08/10/17 12:00 08/10/17 12:00 08/10/17 12:00 08/10/17 05:40 Intake and Output: 08/10/17 08/10/17 06:59 18:59 Intake Total 240 Balance 240 - Medications Medications: Current Medications Acetaminophen (Tylenol 325mg Tab) 650 mg PO Q6H PRN PRN Reason: Fever >100.4 F Aspirin (Aspirin Chewable) 81 mg PO DAILY [facility] Last Admin: 08/10/17 09:34 Dose: 81 mg Atorvastatin Calcium (Lipitor) 40 mg PO DIN [facility] Last Admin: 08/09/17 18:49 Dose: 40 mg Benzocaine/Menthol (Cepacol Sore Throat) 1 hardeep MT Q2H PRN PRN Reason: Sore Throat Clopidogrel Bisulfate (Plavix) 75 mg PO DAILY [facility] Last Admin: 08/10/17 09:34 Dose: 75 mg Ibuprofen (Motrin Tab) 600 mg PO Q6H PRN PRN Reason: Pain, moderate (4-7) Insulin Human Regular (Humulin R Med) 0 units SC ACHS [facility] PRN Reason: Protocol Last Admin: 08/10/17 12:01 Dose: 3 units Metoprolol Tartrate (Lopressor) 25 mg PO 0800,1800 [facility] Last Admin: 08/10/17 08:18 Dose: 25 mg Ondansetron HCl (Zofran Inj) 4 mg IVP Q6H PRN PRN Reason: Nausea/Vomiting Oseltamivir Phosphate (Tamiflu Cap) 75 mg PO Q12 [facility] PRN Reason: Protocol Last Admin: 08/10/17 09:34 Dose: 75 mg Pantoprazole Sodium (Protonix Ec Tab) 40 mg PO Q12 [facility] Last Admin: 08/10/17 09:34 Dose: 40 mg - Labs Labs: 08/10/17 06:00 08/10/17 06:00 PT 13.0 SECONDS (9.4-12.5) H 08/07/17 13:48 INR 1.14 (0.93-1.08) H 08/07/17 13:48 APTT 59.5 Seconds (25.1-36.5) H 08/08/17 05:30 - Constitutional Appears: Non-toxic, No Acute Distress, Chronically Ill - Head Exam Head Exam: ATRAUMATIC, NORMOCEPHALIC - Eye Exam Eye Exam: EOMI, PERRL Pupil Exam: NORMAL ACCOMODATION, PERRL - ENT Exam ENT Exam: Mucous Membranes Moist, Normal External Ear Exam, TM's Normal Bilaterally - Neck Exam Neck Exam: Full ROM, Normal Inspection - Respiratory Exam Respiratory Exam: Clear to Ausculation Bilateral, NORMAL BREATHING PATTERN. absent: Rales, Rhonchi, Wheezes - Cardiovascular Exam Cardiovascular Exam: REGULAR RHYTHM, RRR, +S1, +S2 - GI/Abdominal Exam GI & Abdominal Exam: Soft, Normal Bowel Sounds. absent: Distended, Tenderness - Extremities Exam Extremities Exam: Full ROM, Normal Inspection - Neurological Exam Neurological Exam: Alert, Awake, CN II-XII Intact, Oriented x3 - Psychiatric Exam Psychiatric exam: Normal Affect, Normal Mood - Skin Skin Exam: Intact, Normal Color Assessment and Plan - Assessment and Plan (Free Text) Assessment: 62 yo female with presentation for body aches, subjective fevers, congestion, and chest pressure found to have elevated troponin and increased leukocytosis. No bandemia noted. Negative Chest X-ray. [place] cultures sent. Influenza negative. Trend WBC. On Vancomycin and Zosyn in ER. Supportive care. Noted procalcitonin sent but patient not showing signs of sepsis. No strong evidence of pneumonia. Taken to Cardiac Cath yesterday. Can stop antibiotics at this point. Negative cultures. For discharge today. Thank you for allowing me to participate in the care of the patient, we will follow with you.
--- NOTE | 2017-08-10 15:17 | PN ---
DATE: FOLLOWUP SUBJECTIVE: The patient denies any chest pain. No groin bleeding. PHYSICAL EXAMINATION: VITAL SIGNS: Blood pressure 112/71, heart rate 90, temperature 98.1, respirations 20. HEENT: Normocephalic. CHEST: Clear. HEART: S1 and S2 regular. EXTREMITIES: No edema or groin hematoma. LABORATORY DATA: Today's white count is within normal limits. Hemoglobin and hematocrit 11 and 34.1. Platelet count is within normal limits. Today's SMA-7: Sodium 142, potassium 3.6, chloride 107, CO2 of 27, glucose 206, BUN 10, creatinine 0.7. Venous Doppler of the lower extremity: No sonographic evidence of DVT. Carotid ultrasound, 60-79% proximal internal carotid artery stenosis. Echocardiography study revealed normal ejection fraction and normal segmental wall motion with trace pericardial effusion. ASSESSMENT: 1. Status post [id number] myocardial infarction. 2. Status post coronary stenting to the mid circumflex artery. 3. Viral illness. RECOMMENDATIONS: Continue current aspirin 81 mg once a day, Lipitor 40 mg once a day, Plavix 75 mg once a day, Tamiflu 75 mg twice a day and Lopressor 25 mg twice a day. The patient can be discharged on her current medications to be followed her primary goodwill representative, Dr. Werner at his [place] office. Ezequiel Saldaña MD
--- NOTE | 2017-08-10 15:24 | CARD ---
APPROVED REPORT EKG Measurement Heart [id number] ND 180P7 [id number] <Conclusion> Normal sinus rhythm Right bundle branch block Septal infarct, age undetermined T wave abnormality, consider inferolateral ischemia Abnormal ECG
--- NOTE | 2017-08-10 15:24 | CARD ---
APPROVED REPORT EKG Measurement Heart [id number] CA 182P2 [id number] <Conclusion> Normal sinus rhythm Right bundle branch block Septal infarct, age undetermined T wave abnormality, consider inferolateral ischemia Abnormal ECG
== END 2017-08-10 13:39 | disposition home or self-care (01) | DRG 247 ==
LOC: ED 11:47 → ERH 15:45 → 2RSO 08-08 13:11
PROVIDERS: ADMIT Internal Medicine; ATTEND Hospitalist
PROC: 027034Z Dilation of Coronary Artery, One Artery with Drug-eluting Intraluminal Device, Percutaneous Approach (ICD-10-PCS; principal; 2017-08-08)
PROC: 4A023N7 Measurement of Cardiac Sampling and Pressure, Left Heart, Percutaneous Approach (ICD-10-PCS; 2017-08-08)
PROC: B2151ZZ Fluoroscopy of Left Heart using Low Osmolar Contrast (ICD-10-PCS; 2017-08-08)
PROC: B2111ZZ Fluoroscopy of Multiple Coronary Arteries using Low Osmolar Contrast (ICD-10-PCS; 2017-08-08)
PROC: 3E033PZ Introduction of Platelet Inhibitor into Peripheral Vein, Percutaneous Approach (ICD-10-PCS; 2017-08-08)
DX: I21.4 Non-ST elevation (NSTEMI) myocardial infarction (principal); I25.10 Atherosclerotic heart disease of native coronary artery without angina pectoris; E11.65 Type 2 diabetes mellitus with hyperglycemia; B34.9 Viral infection, unspecified; I12.9 Hypertensive chronic kidney disease with stage 1 through stage 4 chronic kidney disease, or unspecified chronic kidney disease; N18.3 Chronic kidney disease, stage 3 (moderate); E11.22 Type 2 diabetes mellitus with diabetic chronic kidney disease; I65.21 Occlusion and stenosis of right carotid artery; I45.10 Unspecified right bundle-branch block; E86.0 Dehydration; I95.9 Hypotension, unspecified; E78.5 Hyperlipidemia, unspecified; J02.9 Acute pharyngitis, unspecified; M79.661 Pain in right lower leg; Z79.84 Long term (current) use of oral hypoglycemic drugs; Z79.82 Long term (current) use of aspirin; Z82.71 Family history of polycystic kidney

== ENCOUNTER 2018-05-05 10:16 | Emergency (ER) | payer OTHER ==
[2018-05-05 10:17] VITALS: BMI 25.8
[2018-05-05 11:02] VITALS: RESP 18
--- NOTE | 2018-05-05 11:30 | ED PDOC ---
Arrival/HPI - General Chief Complaint: Lower Extremity Problem/Injury Time Seen by Provider: 05/05/18 10:18 Historian: Patient - History of Present Illness Narrative History of Present Illness (Text): 05/05/18 11:27 A 63 year old female, whose past medical history includes KS, cardiac stents, hyperlipidemia, hypertension, diabetes, presents to the emergency department with a complaint of pain, swelling, and numbness to the left upper leg. She notes that the discomfort begins at the groin and radiates down towards the left knee. The patient notes that she took Aleve and Aspirin today. She denies fevers, chills, headache, dizziness, chest pain, shortness of breath, dyspnea on exertion, cough, abdominal pain, nausea, vomiting, diarrhea, back pain, neck pain, urinary/bowel changes, or any other complaint. Time/Duration: Other (This Morning) Symptom Onset: Sudden Symptom Course: Unchanged Activities at Onset: Rest, Light Context: Home Past Medical History - Provider Review Nursing Documentation Reviewed: Yes - Infectious Disease Hx of Infectious Diseases: None - Tetanus Immunization Tetanus Immunization: Up to Date - Reproductive Menopause: Yes - Cardiac Hx Hypertension: Yes - Renal Hx Kidney Stones: Yes - Endocrine/Metabolic Hx Diabetes Mellitus Type 2: Yes - Musculoskeletal/Rheumatological Hx Falls: No - Psychiatric Hx Depression: No Hx Emotional Abuse: No Hx Physical Abuse: No Hx Substance Use: No - Anesthesia Hx Anesthesia: No - Suicidal Assessment Feels Threatened In Home Enviroment: No Family/Social History - Physician Review Nursing Documentation Reviewed: Yes Family/Social History: No Known Family HX Smoking Status: Never Smoked Hx Alcohol Use: No Hx Substance Use: No Hx Substance Use Treatment: No Allergies/Home Meds Allergies/Adverse Reactions: Allergies No Known Allergies Allergy (Verified 08/07/17 12:15) Home Medications: Home Meds Medication Instructions Recorded Confirmed Metformin HCl [Glucophage] 500 mg PO BID 08/09/17 08/09/17 Review of Systems - Physician Review All systems were reviewed & negative as marked: Yes - Review of Systems Constitutional: absent: Fevers Respiratory: absent: SOB, Cough Cardiovascular: absent: Chest Pain, MYRICK Gastrointestinal: absent: Abdominal Pain, Stool Changes, Diarrhea, Vomiting Genitourinary Female: absent: Urine Output Changes Musculoskeletal: Other (Left leg discomfort begining at the groin radiating down towards thigh.). absent: Back Pain, Neck Pain Neurological: absent: Headache, Dizziness Physical Exam Vital Signs Reviewed: Yes Vital Signs Temp Pulse Resp BP Pulse Ox 05/05/18 10:58 98.1 F 82 18 160/80 H 99 Temperature: Afebrile Blood Pressure: Hypertensive Pulse: Regular Respiratory Rate: Normal Appearance: Positive for: Well-Appearing, Non-Toxic, Comfortable Pain Distress: None Mental Status: Positive for: Alert and Oriented X 3 - Systems Exam Head: Present: Atraumatic, Normocephalic Pupils: Present: PERRL Extroacular Muscles: Present: EOMI Conjunctiva: Present: Normal Mouth: Present: Moist Mucous Membranes Neck: Present: Normal Range of Motion Respiratory/Chest: Present: Clear to Auscultation, Good Air Exchange. No: Respiratory Distress, Accessory Muscle Use Cardiovascular: Present: Regular Rate and Rhythm, Normal S1, S2. No: Murmurs Abdomen: No: Tenderness, Distention, Peritoneal Signs Back: Present: Normal Inspection Upper Extremity: Present: Normal Inspection. No: Cyanosis, Edema Lower Extremity: Present: NORMAL PULSES, Normal ROM, Tenderness (left sided hip muscular tenderness down to the left knee laterally. ), Neurovascularly Intact, Other (No hernia.). No: Edema, Swelling Neurological: Present: GCS=15, CN II-XII Intact, Speech Normal Skin: Present: Warm, Dry, Normal Color. No: Rashes Psychiatric: Present: Alert, Oriented x 3, Normal Insight, Normal Concentration Medical Decision Making ED Course and Treatment: 05/05/18 11:33 Impression: A 63 year old female presents to the emergency department with a complaint of left leg pain since this morning. Differential Diagnosis included but are not limited to: Muscle strain/ Sciatica Plan: -- Flexeril and Toradol -- Reassess and disposition Prior Visits: Notes and results from previous visits were reviewed. Progress Notes: 05/05/18 12:35: On re-evaluation, patient's symptoms are mildly improved. Patient is in no acute distress. Able to walk with no ataxia. I have discussed the results and plan with the patient, who expresses understanding. Patient in agreement with plan to be discharged home. Patient is stable for discharge. Patient was instructed to follow up with physician or return if symptoms worsen or new concerning symptoms arise. - Scribe Statement The provider has reviewed the documentation as recorded by the Juan Waterman Provider Scribe Attestation: All medical record entries made by the Marcoibe were at my direction and personally dictated by me. I have reviewed the chart and agree that the record accurately reflects my personal performance of the history, physical exam, medical decision making, and the department course for this patient. I have also personally directed, reviewed, and agree with the discharge instructions and d isposition. a Disposition/Present on Arrival - Present on Arrival Any Indicators Present on Arrival: No History of DVT/PE: No History of Uncontrolled Diabetes: No Urinary Catheter: No History of Decub. Ulcer: No History Surgical Site Infection Following: None - Disposition Have Diagnosis and Disposition been Completed?: Yes Diagnosis: Muscular aches Disposition: HOME/ ROUTINE Disposition Time: 12:17 Patient Plan: Discharge Patient Problems: Current Active Problems Problem Status Onset Muscular aches Acute Condition: IMPROVED Discharge Instructions (ExitCare): Muscle and Bone Pain (DC) Additional Instructions: LAURA PANTOJA, thank you for letting us take care of you today. Your provider was Imer Sandoval DO and you were treated for Musculoskeletal pain. The emergency medical care you received today was directed at your acute symptoms. If you were prescribed any medication, please fill it and take as directed. It may take several days for your symptoms to resolve. Return to the Emergency Department if your symptoms worsen, do not improve, or if you have any other problems. Please contact your doctor or call one of the physicians/clinics you have been referred to that are listed on the Patient Visit Information form that is included in your discharge packet. Bring any paperwork you were given at discharge with you along with any medications you are taking to your follow up visit. Our treatment cannot replace ongoing medical care by a primary care provider outside of the emergency department. Thank you for allowing the [facility] team to be part of your care today. If you had an X-Ray or CT scan: A Radiologist will review the ED reading if any change in treatment is needed we will contact you. If you had a blood, urine, or wound culture: It will take several days for the results, if any change in treatment is needed we will contact you. If you had an STI test: It will take 48 hours for the results. Please call after 1 week if you have not heard back. Prescriptions: Cyclobenzaprine [Flexeril] 5 mg PO TID PRN #20 tab PRN Reason: Muscle Spasm Ibuprofen [Motrin] 600 mg PO Q6 PRN #30 tab PRN Reason: Pain, Moderate (4-7) Referrals: Connor Han MD [Primary Care Provider] - Follow up with primary Forms: [facility] ([place]ian), WORK NOTE
[2018-05-05 12:18] VITALS: BP 140/86; PULSE 72; TEMP 98; O2SAT 100
== END 2018-05-05 12:35 | disposition home or self-care (01) ==
LOC: ED 10:16
DX: M79.10 Myalgia, unspecified site (principal)
CPT/HCPCS: 96372; 99283; J1885